=== PATIENT | male | born 1960 | race Caucasian/White ===

== ENCOUNTER 2017-04-11 12:12 | Inpatient (IN) | payer OTHER ==
[~2017-04-11] VITALS: Ht 175.3 cm; Wt 70.0 kg
[2017-04-11] MEDS ORDERED: SOD CHLORIDE 0.9% 1,000 ML IV STA (12:46)
[2017-04-11] MEDS ORDERED: ONDANSETRON 4 MG INJ IV STA (12:46)
--- NOTE | 2017-04-11 13:05 | ERD ---
ER Documentation Chief Complaint Chief Complaint Abdominal pain, nausea, vomiting HPI 57-year-old male with recently diagnosed pancreatic cancer presenting with multiple complaints of diffuse abdominal pain, nausea, vomiting. He states he was diagnosed with pancreatic cancer at [facility] at [facility] a few months ago. He was supposed to follow-up with a GI specialist outpatient for a biliary stent but never did. He has been progressively worsening and is unable to tolerate p.o.'s. He denies any fever or chills. He is constipated with his last bowel movement being a week ago and was normal. He denies any hematemesis or rectal bleeding. ROS All systems reviewed and are negative except as per history of present illness. Medications Home Meds No Active Prescriptions or Reported Meds Allergies Allergies: Coded Allergies: morphine (Verified Allergy, Severe, 04/11/17) PMhx/Soc History of Surgery: No Hx Miscellaneous Medical Probl: Yes (Pancreatic cancer) Hx Alcohol Use: No Hx Substance Use: No Smoking Status: Current every day smoker FmHx Family History: No diabetes Physical Exam Vitals Vital Signs Date Time Temp Pulse Resp B/P Pulse Ox O2 Delivery O2 Flow Rate FiO2 04/11/17 13:37 97.8 04/11/17 13:28 89 18 123/79 98 Room Air 04/11/17 12:15 89 18 113/65 100 04/11/17 12:15 97.8 89 18 113/65 Room Air Physical Exam Const: Appears ill, nontoxic, in some distress secondary to pain Head: Atraumatic Eyes: Positive scleral icterus ENT: Normal External Ears, Nose and Mouth. Dry mucous membranes Neck: Full range of motion..~ No meningismus. No JVD Resp: Clear to auscultation bilaterally Cardio: Regular rate and rhythm, no murmurs Abd: Soft, diffusely tender, no masses, non distended. Hypoactive bowel sounds Skin: Jaundiced Back: No midline or flank tenderness Ext: Bilateral pedal edema Neur: Awake and alert oriented 3, strength grossly intact, no asterixis Psych: Normal Mood and Affect Result Diagram: 04/11/17 1310 04/11/17 1310 Results 24 hrs Laboratory Tests Test 04/11/17 13:10 White Blood Count 11.810^3/ul Red Blood Count 4.6410^6/ul Hemoglobin 14.1g/dl Hematocrit 37.9% Mean Corpuscular Volume 81.7fl Mean Corpuscular Hemoglobin 30.4pg Mean Corpuscular Hemoglobin Concent 37.2g/dl Red Cell Distribution Width 21.3% Platelet Count 82113^3/UL Mean Platelet Volume 10.4fl Neutrophils % 90.1% Lymphocytes % 3.8% Monocytes % 4.7% Eosinophils % 0.3% Basophils % 0.1% Nucleated Red Blood Cells % 0.0/100WBC Neutrophils # 10.710^3/ul Lymphocytes # 0.510^3/ul Monocytes # 0.610^3/ul Eosinophils # 0.010^3/ul Basophils # 0.010^3/ul Nucleated Red Blood Cells # 0.010^3/ul Prothrombin Time 26.0Sec Prothrombin Time Ratio 2.0 INR International Normalized Ratio 2.35 Activated Partial Thromboplast Time 34.2Sec Sodium Level 137mmol/L Potassium Level 3.7mmol/L Chloride Level 94mmol/L Carbon Dioxide Level 21mmol/L Anion Gap 26 Blood Urea Nitrogen 154mg/dl Creatinine 4.80mg/dl Glucose Level 135mg/dl Calcium Level 9.9mg/dl Total Bilirubin 33.3mg/dl Direct Bilirubin 29.40mg/dl Indirect Bilirubin 3.9mg/dl Aspartate Amino Transf (AST/SGOT) 54IU/L Alanine Aminotransferase (ALT/SGPT) 72IU/L Alkaline Phosphatase 649IU/L Troponin I 0.014ng/ml Total Protein 9.3g/dl Albumin 4.3g/dl Globulin 5.00g/dl Albumin/Globulin Ratio 0.86 Lipase 218U/L Current Medications Medications (Trade) Dose Ordered Sig/Elisa Route PRN Reason Start Time Stop Time Status Last Admin Dose Admin Sodium Chloride (NS) 1,000 ml @ 1,000 mls/hr Q1H STAT IV 04/11/17 12:46 04/11/17 13:45 DC 04/11/17 13:21 Ondansetron HCl (Zofran Inj) 4 mg ONCE STAT IV 04/11/17 12:46 04/11/17 12:48 DC 04/11/17 13:20 Hydromorphone HCl 1 mg 1 mg ONCE STAT IV 04/11/17 13:06 04/11/17 13:07 DC 04/11/17 13:20 Lactated Ringer's (Lr) 1,000 ml @ 1,000 mls/hr Q1H ONCE IV 04/11/17 13:50 04/11/17 14:49 DC 04/11/17 14:05 Procedures/MDM EMERGENT LABS AND DIAGNOSTIC STUDIES: Lab Results above were reviewed and interpreted by me. CBC: Mild leukocytosis with left shift CMP: Signs of biliary obstruction noted with elevated alk phos, severely elevated bilirubin, and mildly elevated liver enzymes. There are also signs of acute renal failure Lipase: no evidence of pancreatitis Coags abnormal with elevated INR and PT Troponin within normal limits Lactate within normal limits UA: no evidence of infection 12-lead EKG was interpreted by Primo Davis MD: Normal Sinus Rhythm with ventricular rate of beats per minute Normal axis Normal intervals No acute ST or T wave changes suggestive of acute ischemia or STEMI. Radiology Results as interpreted by Radiology below were reviewed by Christ Davis MD: CT abdomen and pelvis without contrast: IMPRESSION: Large pancreatic tail mass suggesting the presence of pancreatic carcinoma. Ill-defined hypodense lesions within the liver compatible with hepatic metastases. Marked gallbladder distension with moderate severe intrahepatic and central extrahepatic biliary duct dilatation. Abrupt termination at the level of the sully hepatis is observed, which may be a result of pancreatic or biliary carcinoma. Aortocaval lymphadenopathy. Inflammation of the basilar airways with scattered mucus plugging. RPTAT: AAQQ .Alannah Martinez MD, MD Date Time Electronically viewed and signed by .Alannah Martinez MD, MD on 04/11/2017 15:17 Chest x-ray: No acute abnormalities Abdominal ultrasound: IMPRESSION: The liver is mildly enlarged and there are multiple hypoechoic likely metastatic lesions measuring up to 3.8 cm in the right lobe. There is moderate intrahepatic biliary ductal dilatation as well as prominent distension of the gallbladder and dilatation of the common bile duct to 17 mm, likely due to a distal common bile duct obstruction. No cholelithiasis or evidence of acute cholecystitis. Physician Blanca Date Time Electronically viewed and signed by Davon Cosme Physician on 04/11/2017 15:10 Initial Nursing notes reviewed. Previous Medical Records requested via the Electronic Health Record. EMERGENCY DEPARTMENT COURSE / MEDICAL DECISION MAKING: Patient is presenting with signs and symptoms of high-grade biliary obstruction secondary to pancreatic mass. At this time he is afebrile with stable vitals. His only indication for sepsis is elevated white blood cell count with left shift and elevated anion gap. It is unclear if this is secondary to lactic acidosis. Lactate was ordered but was pending at time of admission. However sepsis workup was started and broad-spectrum antibiotics with full fluid bolus was given. I spoke with Dr. Lara from GI and made him aware of the patient. I also spoke with the radiologist, Dr. Cosme, who recommended biliary tube placement. 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 Patient's infectious symptoms have not stabilized and the patient is at risk of rapid decompensation. The patient will be admitted for careful hydration, antibiotic therapy, and infectious source control. Severe Sepsis Assessment: Infectious Source: Intra-abdominal, possible cholangitis End organ damage indicated by: Wildlife [employer] Research Ecologist > 2.0 INR > 1.5 Bili > 2 Severe Sepsis Managment: Blood Cultures X 2 before broad spectrum antibiotics initiated within 3 hours of recognition. 30 ml/kg NS bolus Completed Initial Lactate: Pending Repeat Lactate pending Critical Care: Time: 35 minutes Treatments/Evaluations: Emergent fluid management, while maintaining close respiratory support. Immediate broad spectrum antibiotic therapy. Simultaneous assessment for possible sources in order to direct therapy. Consideration for invasive and chemical support to prevent respiratory or cardiac collapse. Septic Shock Assessment (1 hour post 30 ml/kg fluid bolus): Hypotension (SBP < 90 or 40 mmHg drop, MAP < 65): No Accepting Care Team: Current data and ongoing care discussed. Time: Time of admission Primary Provider: Panel physicians Consulting: [place] Outstanding Data: lactate, cultures Departure Diagnosis: Primary Impression: Pancreatic mass Additional Impressions: Biliary obstruction due to cancer Acute renal failure Acute renal failure type: unspecified Qualified Code: N17.9 - Acute renal failure, unspecified acute renal failure type Uremia Sepsis Sepsis type: sepsis due to unspecified organism Qualified Code: A41.9 - Sepsis, due to unspecified organism Coagulation test abnormality Condition: Serious BIANCA DAVIS MD Apr 11, 2017 13:05
[2017-04-11] MEDS ORDERED: HYDROmorphONE 1 MG/ML SYG IV STA ×2 (13:06→17:56)
--- NOTE | 2017-04-11 13:30 | RADRPT ---
PROCEDURE: XR Chest. CLINICAL INDICATION: Abdominal Pain TECHNIQUE: Single frontal view of the chest was obtained COMPARISON: None FINDINGS: The heart and mediastinum are within normal limits. The lungs are clear. There is no pleural effusion or pneumothorax. A skin fold overlies the right lung apex. The osseous structures are grossly unremarkable. IMPRESSION: 1. No acute cardiopulmonary disease. RPTAT:AAJJ Physician Gracy Date Time Electronically viewed and signed by Physician Gracy on 04/11/2017 13:30 QL/
[2017-04-11 13:37] VITALS: TEMP 97.8
[2017-04-11] MEDS ORDERED: LACTATED RINGER'S 1,000 ML IV ONE (13:50)
[2017-04-11] MEDS ORDERED: ACETAMINOPHEN 325 MG TAB PO PRN (14:00)
[2017-04-11] MEDS ORDERED: ONDANSETRON 4 MG INJ IV PRN (14:00)
[2017-04-11] MEDS ORDERED: SODIUM CHLORIDE 0.9% 1L BAG IV* STA (14:13)
[2017-04-11] MEDS ORDERED: PIPER-TAZO 3.375 GM IV (PMX) 100 ML IVPB ONE (14:30)
--- NOTE | 2017-04-11 15:10 | RADRPT ---
PROCEDURE: US Abdomen Complete. CLINICAL INDICATION: biliary obstruction; hx panc CA TECHNIQUE: Multiple real-time images were acquired of the patient's abdomen and retroperitoneum ut ilizing a high resolution transducer. COMPARISON: None FINDINGS: The liver measures 16.5 cm and demonstrates heterogeneous echotexture with multiple round hypoechoic hypovascular lesions noted measuring up to 3.8 cm in the right lobe which are likely metastases. Th ere is moderate intrahepatic biliary ductal dilatation. The extrahepatic common bile duct measures 1 7 mm. The main portal vein is patent with proper directional flow. The gallbladder is without stones, wall thickening, or pericholecystic fluid. The gallbladder is markedly distended with sludge noted. The pancreas is not well visualized. The spleen measures 12.5 cm. The right kidney measures 11.3 cm. The left kidney measures 11.8 cm. There are no renal calculi or h ydronephrosis bilaterally. The visualized abdominal aorta and IVC are grossly unremarkable. IMPRESSION: The liver is mildly enlarged and there are multiple hypoechoic likely metastatic lesions measuring u p to 3.8 cm in the right lobe. There is moderate intrahepatic biliary ductal dilatation as well as prominent distension of the gall bladder and dilatation of the common bile duct to 17 mm, likely due to a distal common bile duct obs truction. No cholelithiasis or evidence of acute cholecystitis. RPTAT: EE Physician Blanca Date Time Electronically viewed and signed by Physician Balnca on 04/11/2017 15:10 RA/
--- NOTE | 2017-04-11 15:17 | RADRPT ---
PROCEDURE: CT Abdomen and Pelvis without contrast. CLINICAL INDICATION: Pain. Pancreatic cancer. TECHNIQUE: Multiple contiguous axial CT images of the abdomen and pelvis were obtained without the administration of intravenous contrast. Coronal and sagittal reconstructions were also performed. C TDIvol (mGy): 6.93; Total Exam DLP (mGy-cm): 404.23. One or more of the following dose reduction techniques were utilized: - Automated exposure control. - Adjustment of the mA and/or kV according to patient size. - Use of iterative reconstruction technique. COMPARISON: Abdominal ultrasound 04/11/2017. FINDINGS: Limited imaging of the lower thorax demonstrates bronchial wall thickening with scattered mucus plug ging within the lung bases. There is a 3.8 cm ill-defined hypodensity within the inferior aspect of the right hepatic lobe. Ther e is a similar 3.7 cm ill-defined hypodensity within the medial segment of the left hepatic lobe. Mo derate severe intrahepatic and central extrahepatic biliary duct dilatation is observed. The gallbla dder is markedly distended. There is focal enlargement and heterogeneity of the pancreatic tail latia uring approximately 4.3 cm in greatest diameter. The adrenal glands are unremarkable. The spleen lucia sures 13.0 cm in a craniocaudal dimension which is mildly enlarged. The kidneys are symmetric in size. There are no nephroureteral stones. There is no hydronephrosis o r abnormal perinephric inflammation. The abdominal aorta is normal in caliber. Atherosclerotic calcification is present. There is an en larged aortocaval lymph node which measures 16 mm in short axis (3-73). The stomach and small intestines are unremarkable. A moderate large volume of formed stool seen thro ughout the colon. The appendix is not visualized. There are no focal inflammatory changes of the me sentery. There is no mesenteric lymphadenopathy. There is no ascites. The bladder, prostate and seminal vesicles are unremarkable. There is no free pelvic fluid. There i s no pelvic sidewall or inguinal lymphadenopathy. Mild degenerative changes of the lower lumbar spine are observed. Body wall soft tissues are unremar kable. IMPRESSION: Large pancreatic tail mass suggesting the presence of pancreatic carcinoma. Ill-defined hypodense lesions within the liver compatible with hepatic metastases. Marked gallbladder distension with moderate severe intrahepatic and central extrahepatic biliary ashly t dilatation. Abrupt termination at the level of the sully hepatis is observed, which may be a resul t of pancreatic or biliary carcinoma. Aortocaval lymphadenopathy. Inflammation of the basilar airways with scattered mucus plugging. RPTAT: AAQQ .Alannah Martinez MD, Date Time Electronically viewed and signed by .Alannah Martinez MD, on 04/11/2017 15:17 .T/
[2017-04-11 16:00] VITALS: BP 119/63; PULSE 86; RESP 16; Ht 175.3 cm; Wt 70.0 kg
--- NOTE | 2017-04-11 17:07 | CONS ---
Date/Time of Note Date/Time of Note DATE: 04/11/17 TIME: 16:41 Assessment/Plan Assessment/Plan Chief Complaint/Hosp Course Summary Assessment and Plan: Assessment: Pancreatic Cancer Possible metastasis to liver Hyperbilirubinemia-secondary to pancreatic cancer Plan: Continue to monitor labs Possible plan for ERCP Sunday- will reevaluate tomorrow Endoscopy - risks/benefits/alternatives/indications of procedure and sedation/ anesthesia discussed with patient who states understanding and gives informed consent to proceed. Questions were answered. Consider palliative care Patient seen in collaboration with Dr. Lara Chief Complaint/Reason for Visit: Hyperbilirubinemia History of Present Illness: This is a 57-year-old male recently diagnosed with pancreatic cancer, Was suppose to follow up with oncology but never did. Pt admitted to hospital for worsening abd pain, located RLQ, pain is described as being sharp, only relieved with pain medication. Workup patient was noted to have a bilirubin of 33, aminotransferase are minimally elevated. A CT scan was obtained showing large pancreatic tail mass suggesting the presence of pancreatic carcinoma.Ill- defined hypodense lesions within the liver compatible with hepatic metastases.Marked gallbladder distension with moderate severe intrahepatic and central extrahepatic biliary duct dilatation. Abrupt termination at the level of the sully hepatis is observed, which may be a result of pancreatic or biliary carcinoma. Aortocaval lymphadenopathy.Inflammation of the basilar airways with scattered mucus plugging. The time of examination patient is jaundiced and complained of right lower quadrant pain, nausea, poor appetite, weight loss, occasional constipation. He denies diarrhea pyrosis rectal bleeding hematemesis. Plan for ERCP Sunday, overall patient with poor prognosis. Past Medical History: Pancreatic cancer Allergies: Morphine Family History: No family history of colon cancer Social History: Former smoker-3 months ago PHYSICAL EXAMINATION: GENERAL: chronically ill, frail, jaundice, alert & oriented x 3, SKIN: No lesions, no stigmata chronic liver disease, no evidence of bleeding diathesis LYMPHATIC: No palpable lymphadenopathy. HEAD: Normocephalic, atraumatic, no tenderness. EYES: Pupils equal reactive to light and accommodation, full extraocular movements, sclera clear, non-icteric, no discharge. EARS/NOSE AND THROAT: Ears normal, nose normal, oropharynx normal, oral membranes well hydrated without lesions. NECK: Supple, no masses, thyroid normal, JVP within normal limits, carotids normal without bruits. CHEST: Inspection within normal limits. CARDIOVASCULAR: Heart: Regular rate and rhythm, no murmurs, gallops or rubs. Peripheral pulses present within normal limits, no cyanosis, clubbing or edemas. No pulsatile abdominal mass RESPIRATORY: Lungs clear to auscultation GASTROINTESTINAL AND LIVER: Abdomen: Soft, non tenderness, distended, no hernias , no masses, no guarding, no rebound tenderness, normoactive bowel sounds. Rectal: Deferred. GENITOURINARY: Male genitalia within normal limits. EXTREMITIES: No cyanosis, clubbing. Positive for BLE edema. Problems: Consultation Date/Type/Reason Admit Date/Time Apr 11, 2017 at 13:53 Date of Consultation: Apr 11, 2017 Type of Consultation: GI Reason for Consultation Hyperbilirubinemia Social History Smoking Status: Former smoker Exam/Review of Systems Vital Signs Vitals Vital Signs Date Time Temp Pulse Resp B/P Pulse Ox O2 Delivery O2 Flow Rate FiO2 04/11/17 13:37 97.8 04/11/17 13:28 89 18 123/79 98 Room Air Results Result Diagram: 04/11/17 1310 04/11/17 1310 Results 24 hrs Laboratory Tests Test 04/11/17 13:10 White Blood Count 11.8 H Red Blood Count 4.64 L Hemoglobin 14.1 Hematocrit 37.9 L Mean Corpuscular Volume 81.7 L Mean Corpuscular Hemoglobin 30.4 Mean Corpuscular Hemoglobin Concent 37.2 H Red Cell Distribution Width 21.3 H Platelet Count 217 Mean Platelet Volume 10.4 Neutrophils % 90.1 H Lymphocytes % 3.8 L Monocytes % 4.7 Eosinophils % 0.3 Basophils % 0.1 Nucleated Red Blood Cells % 0.0 Neutrophils # 10.7 H Lymphocytes # 0.5 L Monocytes # 0.6 Eosinophils # 0.0 Basophils # 0.0 Nucleated Red Blood Cells # 0.0 Prothrombin Time 26.0 H Prothrombin Time Ratio 2.0 INR International Normalized Ratio 2.35 Activated Partial Thromboplast Time 34.2 Sodium Level 137 Potassium Level 3.7 Chloride Level 94 L Carbon Dioxide Level 21 Anion Gap 26 H Blood Urea Nitrogen 154 H Creatinine 4.80 H Glucose Level 135 Calcium Level 9.9 Total Bilirubin 33.3 H Direct Bilirubin 29.40 *H Indirect Bilirubin 3.9 H Aspartate Amino Transf (AST/SGOT) 54 H Alanine Aminotransferase (ALT/SGPT) 72 H Alkaline Phosphatase 649 H Troponin I 0.014 Total Protein 9.3 H Albumin 4.3 Globulin 5.00 H Albumin/Globulin Ratio 0.86 Lipase 218 ARIK FLOREZ Apr 11, 2017 16:51
--- NOTE | 2017-04-11 17:39 | HP ---
Date/Time of Note Date/Time of Note DATE: 04/11/17 TIME: 17:34 Assessment/Plan VTE Prophylaxis VTE Prophylaxis Intervention: heparin Assessment/Plan Chief Complaint/Hosp Course 57 yo male with stage IV pancreatic cancer presenting with obstructive jaundice - Pain control w oxycodone and IV dialudid PRN - Palliative consulted - Consideration of ERCP which would be a palliative procedure - Hospice consult DNR/DNI Problems: HPI/ROS Admit Date/Time Admit Date/Time Apr 11, 2017 at 13:53 Hx of Present Illness 57 yo male presenting wtih abdominal pain Patient was diagnosed with stage IV pancreatic cancer a few months ago at [facility] after presenting with jaundice. Was offered biliary stent but declined. No cancer directed care ever done, as patient decided given inability to cure advanced cancer there wasn't point in doing so. His pain in abdomen, mostly in RUQ has worsened and become intolerable. Came to hosptial today for pain control. Imaging and labs shows marked obstructive jaundice in setting of metastatic pancreatic cancer. Patient has been offered pallitative ERCP/stent but he is undecided on if he wants to Patient is here from [place], living in [facility] Previously sounds like offered home hospice via [facility] but unable given transient housing situation Discussed options, he is clearly DNR/DNI. Very open to hospice PMH/Family/Social Social History Smoking Status: Current every day smoker Exam/Review of Systems Vital Signs Vitals Vital Signs Date Time Temp Pulse Resp B/P Pulse Ox O2 Delivery O2 Flow Rate FiO2 04/11/17 13:37 97.8 04/11/17 13:28 89 18 123/79 98 Room Air Exam Exam Jaundiced, cachectic Pleasant, orietnex x3 RRR Clear lungs Abdomen soft, masses felt, no rebound or guarding No edema Constitutional: alert, oriented, well developed Psych: nl mood/affect, no complaints Head: atraumatic, normocephalic Eyes: EOMI, PERRL, nl conjunctiva, nl lids, nl sclera ENMT: nl external ears & nose, nl lips & teeth, nl nasal mucosa & septum Neck: non-tender, supple Respiratory: clear to auscultation, normal air movement Cardiovascular: nl pulses, regular rate and rhythm Gastrointestinal: nl liver, spleen, non-tender, soft Musculoskeletal: nl extremities to inspection Extremities: normal pulses Neurological: CASE BRIEFER II-XII intact, nl mental status, nl speech, nl strength Skin: nl turgor, No rash or lesions Lymph: nl lymph nodes Labs Result Diagram: 04/11/17 1310 04/11/17 1310 KEILY ROMANO MD Apr 11, 2017 17:39
--- NOTE | 2017-04-11 17:39 | HP ---
Date/Time of Note Date/Time of Note DATE: 04/11/17 TIME: 17:34 Assessment/Plan VTE Prophylaxis VTE Prophylaxis Intervention: heparin Assessment/Plan Chief Complaint/Hosp Course 57 yo male with stage IV pancreatic cancer presenting with obstructive jaundice - Pain control w oxycodone and IV dialudid PRN - Palliative consulted - Consideration of ERCP which would be a palliative procedure - Hospice consult DNR/DNI Problems: HPI/ROS Admit Date/Time Admit Date/Time Apr 11, 2017 at 13:53 Hx of Present Illness 57 yo male presenting wtih abdominal pain Patient was diagnosed with stage IV pancreatic cancer a few months ago at [facility] after presenting with jaundice. Was offered biliary stent but declined. No cancer directed care ever done, as patient decided given inability to cure advanced cancer there wasn't point in doing so. His pain in abdomen, mostly in RUQ has worsened and become intolerable. Came to hosptial today for pain control. Imaging and labs shows marked obstructive jaundice in setting of metastatic pancreatic cancer. Patient has been offered pallitative ERCP/stent but he is undecided on if he wants to Patient is here from [place], living in [facility]. Previously sounds like offered home hospice via [facility] but unable given transient housing situation Discussed options, he is clearly DNR/DNI. Very open to hospice PMH/Family/Social Social History Smoking Status: Current every day smoker Exam/Review of Systems Vital Signs Vitals Vital Signs Date Time Temp Pulse Resp B/P Pulse Ox O2 Delivery O2 Flow Rate FiO2 04/11/17 13:37 97.8 04/11/17 13:28 89 18 123/79 98 Room Air Exam Exam Jaundiced, cachectic Pleasant, orietnex x3 RRR Clear lungs Abdomen soft, masses felt, no rebound or guarding No edema Constitutional: alert, oriented, well developed Psych: nl mood/affect, no complaints Head: atraumatic, normocephalic Eyes: EOMI, PERRL, nl conjunctiva, nl lids, nl sclera ENMT: nl external ears & nose, nl lips & teeth, nl nasal mucosa & septum Neck: non-tender, supple Respiratory: clear to auscultation, normal air movement Cardiovascular: nl pulses, regular rate and rhythm Gastrointestinal: nl liver, spleen, non-tender, soft Musculoskeletal: nl extremities to inspection Extremities: normal pulses Neurological: SUGAR PLANTATION MANAGER II-XII intact, nl mental status, nl speech, nl strength Skin: nl turgor, No rash or lesions Lymph: nl lymph nodes Labs Result Diagram: 04/11/17 1310 04/11/17 1310 KEILY ROMANO MD Apr 11, 2017 17:39
--- NOTE | 2017-04-11 17:39 | HP ---
Date/Time of Note Date/Time of Note DATE: 04/11/17 TIME: 17:34 Assessment/Plan VTE Prophylaxis VTE Prophylaxis Intervention: heparin Assessment/Plan Chief Complaint/Hosp Course 57 yo male with stage IV pancreatic cancer presenting with obstructive jaundice - Pain control w oxycodone and IV dialudid PRN - Palliative consulted - Consideration of ERCP which would be a palliative procedure - Hospice consult DNR/DNI Problems: HPI/ROS Admit Date/Time Admit Date/Time Apr 11, 2017 at 13:53 Hx of Present Illness 57 yo male presenting wtih abdominal pain Patient was diagnosed with stage IV pancreatic cancer a few months ago at [facility] after presenting with jaundice. Was offered biliary stent but declined. No cancer directed care ever done, as patient decided given inability to cure advanced cancer there wasn't point in doing so. His pain in abdomen, mostly in RUQ has worsened and become intolerable. Came to hosptial today for pain control. Imaging and labs shows marked obstructive jaundice in setting of metastatic pancreatic cancer. Patient has been offered pallitative ERCP/stent but he is undecided on if he wants to Patient is here from [place], living in [facility]. Previously sounds like offered home hospice via [facility] but unable given transient housing situation Discussed options, he is clearly DNR/DNI. Very open to hospice PMH/Family/Social Social History Smoking Status: Current every day smoker Exam/Review of Systems Vital Signs Vitals Vital Signs Date Time Temp Pulse Resp B/P Pulse Ox O2 Delivery O2 Flow Rate FiO2 04/11/17 13:37 97.8 04/11/17 13:28 89 18 123/79 98 Room Air Exam Exam Jaundiced, cachectic Pleasant, orietnex x3 RRR Clear lungs Abdomen soft, masses felt, no rebound or guarding No edema Constitutional: alert, oriented, well developed Psych: nl mood/affect, no complaints Head: atraumatic, normocephalic Eyes: EOMI, PERRL, nl conjunctiva, nl lids, nl sclera ENMT: nl external ears & nose, nl lips & teeth, nl nasal mucosa & septum Neck: non-tender, supple Respiratory: clear to auscultation, normal air movement Cardiovascular: nl pulses, regular rate and rhythm Gastrointestinal: nl liver, spleen, non-tender, soft Musculoskeletal: nl extremities to inspection Extremities: normal pulses Neurological: TIRE AND LUBE TECHNICIAN II-XII intact, nl mental status, nl speech, nl strength Skin: nl turgor, No rash or lesions Lymph: nl lymph nodes Labs Result Diagram: 04/11/17 1310 04/11/17 1310 KEILY ROMANO MD Apr 11, 2017 17:39
[2017-04-11] MEDS ORDERED: NACL 0.9% 3 ML SYG IV SCH (18:00)
[2017-04-11] MEDS ORDERED: oxyCODONE 15 MG TAB PO PRN (18:00)
[2017-04-11 19:57] VITALS: BP 110/61; RESP 20
[2017-04-11] MEDS: HYDROmorphONE 0.5 MG/0.5 ML SYG IV PRN (20:19)
[2017-04-12 03:01] VITALS: BP 114/64; RESP 18
[2017-04-12] MEDS: HYDROmorphONE 0.5 MG/0.5 ML SYG IV PRN (04:48)
[2017-04-12 07:46] VITALS: BP 125/76; RESP 18
[2017-04-12] MEDS ORDERED: HYDROmorphONE 2 MG/ML SYG IV STA (08:45)
--- NOTE | 2017-04-12 08:51 | CONS ---
Date/Time of Note Date/Time of Note DATE: 04/12/17 TIME: 08:49 Assessment/Plan Assessment/Plan Additional Assessment/Plan Pancreatic cancer Obstructive jaundice Abdominal pain Depression Mr. Quan has made it very clear that he is not interested in aggressive care. He was given options at [facility] but refused chemotherapy or any other diagnostic or aggressive intervention. He is clearly distraught and depressed, and he is homeless. He has no support system is not he has no children and my impressions are no close friends to help with assistance. Additionally he complains of abdominal pain although he states has not increased in intensity he is very uncomfortable. Denies pain in bilateral lower extremities but he has radiating pain into his back 7/10 at rest, 3/10 with medications including Dilaudid IV. He states that he is unable to take p.o. any longer. He was only on OxyContin as an outpatient, he is non-smoker nondrinker he has no significant past medical history of substance abuse he is not negotiating with me for higher doses of pain control medications nor particular opioids. Currently he states he is nauseous but denies pruritus mental confusion pain does interfere with his mood sleeping pattern. Patient is not asking for pain control medications from situational stressors only pain control. There is no past medical history of DUIs. His pain is described as to severe. 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 Social work service consultation consider early plans for probable snf placement. Consultation Date/Type/Reason Admit Date/Time Apr 11, 2017 at 13:53 Type of Consultation: Pain palliative Hx of Present Illness 57-year-old gentleman who was diagnosed with pancreatic cancer 3 months ago at [facility]. He presented there with abdominal discomfort increasing in severity he refuses any aggressive intervention and was discharged home with chest pain control medications. He called 911 and was brought to emergency room and [facility] for increasing abdominal discomfort, nausea loss of appetite. He is not interested in any further aggressive intervention and the only intervention he is considering is stent placement, however he wants to think about it until Sunday 3 days from now. Psychological: nl mood/affect, no complaints Social History Smoking Status: Current every day smoker Exam/Review of Systems Vital Signs Vitals Vital Signs Date Time Temp Pulse Resp B/P Pulse Ox O2 Delivery O2 Flow Rate FiO2 04/12/17 07:46 98.0 87 18 125/76 99 04/11/17 16:00 Room Air Intake and Output 04/11/17 04/11/17 04/12/17 15:00 23:00 07:00 Intake Total 620 ml Output Total 400 ml Balance 220 ml Exam Constitutional: distress, frail Psych: depression Respiratory: No clear to auscultation, No congested cough, No crackles/rales, No diminished breath sounds, No intercostal retraction, No labored breathing, No normal air movement, No other, No respirations, No tactile fremitus, No wheezing Cardiovascular: No S3, No S4, No bruits, No diastolic murmur, No edema, No gallop, No irregular rhythm, No jugular venous distention (JVD), No murmurs/ extra sounds, No nl pulses, No other, No regular rate and rhythm, No rub, No systolic murmur Neurological: CONCRETE BATCHING PLANT OPERATOR II-XII intact, nl mental status, nl speech, nl strength Results Result Diagram: 04/12/1744004/12/17 044 Results 24 hrs Laboratory Tests Test 04/11/17 13:10 04/11/17 17:30 04/11/17 19:21 04/11/17 22:14 White Blood Count 11.8 H Red Blood Count 4.64 L Hemoglobin 14.1 Hematocrit 37.9 L Mean Corpuscular Volume 81.7 L Mean Corpuscular Hemoglobin 30.4 Mean Corpuscular Hemoglobin Concent 37.2 H Red Cell Distribution Width 21.3 H Platelet Count 217 Mean Platelet Volume 10.4 Neutrophils % 90.1 H Lymphocytes % 3.8 L Monocytes % 4.7 Eosinophils % 0.3 Basophils % 0.1 Nucleated Red Blood Cells % 0.0 Neutrophils # 10.7 H Lymphocytes # 0.5 L Monocytes # 0.6 Eosinophils # 0.0 Basophils # 0.0 Nucleated Red Blood Cells # 0.0 Prothrombin Time 26.0 H Prothrombin Time Ratio 2.0 INR International Normalized Ratio 2.35 Activated Partial Thromboplast Time 34.2 Sodium Level 137 Potassium Level 3.7 Chloride Level 94 L Carbon Dioxide Level 21 Anion Gap 26 H Blood Urea Nitrogen 154 H Creatinine 4.80 H Glucose Level 135 Calcium Level 9.9 Total Bilirubin 33.3 H Direct Bilirubin 29.40 *H Indirect Bilirubin 3.9 H Aspartate Amino Transf (AST/SGOT) 54 H Alanine Aminotransferase (ALT/SGPT) 72 H Alkaline Phosphatase 649 H Troponin I 0.014 Total Protein 9.3 H Albumin 4.3 Globulin 5.00 H Albumin/Globulin Ratio 0.86 Lipase 218 Lactic Acid Level 1.5 1.1 1.0 Test 04/11/17 23:50 04/12/17 04:41 Urine Color MEG Urine Clarity CLEAR Urine pH 5.0 Urine Specific [place] 1.014 Urine Ketones NEGATIVE Urine Nitrite NEGATIVE Urine Bilirubin 2+ H Urine Urobilinogen 2+ H Urine Leukocyte Esterase NEGATIVE Urine Microscopic RBC 6 H Urine Microscopic WBC 4 Urine Hemoglobin 1+ H Urine Random Sodium < 13 L Urine Glucose NEGATIVE Urine Total Protein 1+ H White Blood Count 9.9 Red Blood Count 3.97 L Hemoglobin 12.3 L Hematocrit 32.8 L Mean Corpuscular Volume 82.6 Mean Corpuscular Hemoglobin 31.0 Mean Corpuscular Hemoglobin Concent 37.5 H Red Cell Distribution Width 21.0 H Platelet Count 161 # Mean Platelet Volume Neutrophils % 87.7 H Lymphocytes % 4.6 L Monocytes % 6.1 Eosinophils % 0.7 Basophils % 0.1 Nucleated Red Blood Cells % 0.0 Neutrophils # 8.7 H Lymphocytes # 0.5 L Monocytes # 0.6 Eosinophils # 0.1 Basophils # 0.0 Nucleated Red Blood Cells # 0.0 Sodium Level 138 Potassium Level 4.1 Chloride Level 96 L Carbon Dioxide Level 21 Anion Gap 25 H Blood Urea Nitrogen 149 H Creatinine 4.34 H Glucose Level 108 Calcium Level 8.9 Total Bilirubin 30.0 H Direct Bilirubin 25.70 *H Indirect Bilirubin 4.3 H Aspartate Amino Transf (AST/SGOT) 56 H Alanine Aminotransferase (ALT/SGPT) 60 Alkaline Phosphatase 525 H Total Protein 8.0 # Albumin 4.0 Globulin 4.00 H Albumin/Globulin Ratio 1.00 Medications Medications Current Medications Hydromorphone HCl (Dilaudid) 0.5 mg Q4H PRN IV SEVERE PAIN LEVEL 7-10 Last administered on 04/12/17t 04:48; Admin Dose 0.5 MG; Start 04/11/17 at 18:00 Oxycodone HCl (Roxicodone) 15 mg Q4H PRN PO PAIN; Start 04/11/17 at 18:00 Enoxaparin Sodium (Lovenox) 30 mg DAILY SC ; Start 04/12/17 at 09:00 ZOHRA ANN Apr 12, 2017 08:51
[2017-04-12] MEDS ORDERED: ENOXAPARIN 40 MG/0.4 ML SYG SC SCH (09:00)
[2017-04-12] MEDS: ENOXAPARIN 30 MG/0.3 ML SYG SC SCH (09:18)
[2017-04-12] MEDS: HYDROmorphONE 0.2 MG/ML PCA IV SCH (10:43)
--- NOTE | 2017-04-12 12:37 | PN ---
Date/Time of Note Date/Time of Note DATE: 04/12/17 TIME: 12:32 Assessment/Plan VTE Prophylaxis VTE Prophylaxis Intervention: SCD's Lines/Catheters [facility] Urinary Cath still in place: No Assessment/Plan Chief Complaint/Hosp Course Summary Assessment and Plan: Assessment: Pancreatic Cancer Possible metastasis to liver Hyperbilirubinemia-secondary to pancreatic cancer Plan: Continue plan of care Patient currently does not want ERCP only c/o minimal pruritus-but does not affect current well-being Will continue to monitor patient Patient seen in collaboration with Dr. 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 C/o minimal pruritus but not enough to affect well-being. Will continue to monitor patient. PHYSICAL EXAMINATION: GENERAL: chronically ill, frail, jaundice, alert & oriented x 3, SKIN: No lesions, no stigmata chronic liver disease, no evidence of bleeding diathesis LYMPHATIC: No palpable lymphadenopathy. HEAD: Normocephalic, atraumatic, no tenderness. EYES: Pupils equal reactive to light and accommodation, full extraocular movements, sclera clear, non-icteric, no discharge. EARS/NOSE AND THROAT: Ears normal, nose normal, oropharynx normal, oral membranes well hydrated without lesions. NECK: Supple, no masses, thyroid normal, JVP within normal limits, carotids normal without bruits. CHEST: Inspection within normal limits. CARDIOVASCULAR: Heart: Regular rate and rhythm, no murmurs, gallops or rubs. Peripheral pulses present within normal limits, no cyanosis, clubbing or edemas. No pulsatile abdominal mass RESPIRATORY: Lungs clear to auscultation GASTROINTESTINAL AND LIVER: Abdomen: Soft, non tenderness, distended, no hernias , no masses, no guarding, no rebound tenderness, normoactive bowel sounds. Rectal: Deferred. GENITOURINARY: Male genitalia within normal limits. EXTREMITIES: No cyanosis, clubbing. Positive for BLE edema. Problems: Exam/Review of Systems Vital Signs Vitals Vital Signs Date Time Temp Pulse Resp B/P Pulse Ox O2 Delivery O2 Flow Rate FiO2 04/12/17 07:46 98.0 87 18 125/76 99 04/11/17 16:00 Room Air Intake and Output 04/11/17 04/11/17 04/12/17 15:00 23:00 07:00 Intake Total 620 ml Output Total 400 ml Balance 220 ml Results Result Diagram: 04/12/17 0441 04/12/17 0441 Results 24 hrs Laboratory Tests Test 04/11/17 13:10 04/11/17 17:30 04/11/17 19:21 04/11/17 22:14 White Blood Count 11.8 H Red Blood Count 4.64 L Hemoglobin 14.1 Hematocrit 37.9 L Mean Corpuscular Volume 81.7 L Mean Corpuscular Hemoglobin 30.4 Mean Corpuscular Hemoglobin Concent 37.2 H Red Cell Distribution Width 21.3 H Platelet Count 217 Mean Platelet Volume 10.4 Neutrophils % 90.1 H Lymphocytes % 3.8 L Monocytes % 4.7 Eosinophils % 0.3 Basophils % 0.1 Nucleated Red Blood Cells % 0.0 Neutrophils # 10.7 H Lymphocytes # 0.5 L Monocytes # 0.6 Eosinophils # 0.0 Basophils # 0.0 Nucleated Red Blood Cells # 0.0 Prothrombin Time 26.0 H Prothrombin Time Ratio 2.0 INR International Normalized Ratio 2.35 Activated Partial Thromboplast Time 34.2 Sodium Level 137 Potassium Level 3.7 Chloride Level 94 L Carbon Dioxide Level 21 Anion Gap 26 H Blood Urea Nitrogen 154 H Creatinine 4.80 H Glucose Level 135 Calcium Level 9.9 Total Bilirubin 33.3 H Direct Bilirubin 29.40 *H Indirect Bilirubin 3.9 H Aspartate Amino Transf (AST/SGOT) 54 H Alanine Aminotransferase (ALT/SGPT) 72 H Alkaline Phosphatase 649 H Troponin I 0.014 Total Protein 9.3 H Albumin 4.3 Globulin 5.00 H Albumin/Globulin Ratio 0.86 Lipase 218 Lactic Acid Level 1.5 1.1 1.0 Test 04/11/17 23:50 04/12/17 04:41 Urine Color MEG Urine Clarity CLEAR Urine pH 5.0 Urine Specific [place] 1.014 Urine Ketones NEGATIVE Urine Nitrite NEGATIVE Urine Bilirubin 2+ H Urine Urobilinogen 2+ H Urine Leukocyte Esterase NEGATIVE Urine Microscopic RBC 6 H Urine Microscopic WBC 4 Urine Hemoglobin 1+ H Urine Random Sodium < 13 L Urine Glucose NEGATIVE Urine Total Protein 1+ H White Blood Count 9.9 Red Blood Count 3.97 L Hemoglobin 12.3 L Hematocrit 32.8 L Mean Corpuscular Volume 82.6 Mean Corpuscular Hemoglobin 31.0 Mean Corpuscular Hemoglobin Concent 37.5 H Red Cell Distribution Width 21.0 H Platelet Count 161 # Mean Platelet Volume Neutrophils % 87.7 H Lymphocytes % 4.6 L Monocytes % 6.1 Eosinophils % 0.7 Basophils % 0.1 Nucleated Red Blood Cells % 0.0 Neutrophils # 8.7 H Lymphocytes # 0.5 L Monocytes # 0.6 Eosinophils # 0.1 Basophils # 0.0 Nucleated Red Blood Cells # 0.0 Sodium Level 138 Potassium Level 4.1 Chloride Level 96 L Carbon Dioxide Level 21 Anion Gap 25 H Blood Urea Nitrogen 149 H Creatinine 4.34 H Glucose Level 108 Calcium Level 8.9 Total Bilirubin 30.0 H Direct Bilirubin 25.70 *H Indirect Bilirubin 4.3 H Aspartate Amino Transf (AST/SGOT) 56 H Alanine Aminotransferase (ALT/SGPT) 60 Alkaline Phosphatase 525 H Total Protein 8.0 # Albumin 4.0 Globulin 4.00 H Albumin/Globulin Ratio 1.00 Medications Medications Current Medications Enoxaparin Sodium (Lovenox) 30 mg DAILY SC Last administered on 04/12/17 09:18 ; Admin Dose 30 MG; Start 04/12/17 at 09:00 Hydromorphone HCl (Dilaudid ADVERTISING LAYOUT WORKER) 0.3 MG/HR CONTINUOUS R... Q4PCA IV Last administered on 04/12/17 10:43; Admin Dose 6 MG; Start 04/12/17 at 09:00 ARIK FLOREZ Apr 12, 2017 12:37
--- NOTE | 2017-04-12 13:48 | PN ---
Date/Time of Note Date/Time of Note DATE: 04/12/17 TIME: 13:47 Assessment/Plan VTE Prophylaxis VTE Prophylaxis Intervention: heparin Lines/Catheters IV C[facility]ter Type (from [facility]): Saline Lock Urinary Cath still in place: No Assessment/Plan Chief Complaint/Hosp Course 57 yo male with stage IV pancreatic cancer presenting with obstructive jaundice - Pain control w SALESPERSON STEREO EQUIPMENT per Dr Brown - Consideration of ERCP which would be a palliative procedure, leaning against it - Hospice consulted, hopefully can be placed in SNF DNR/DNI Problems: Subjective 24 Hr Interval Summary Free Text/Dictation Seems to be leaning against ERCP Started on SALESPERSON STEREO EQUIPMENT Exam/Review of Systems Vital Signs Vitals Vital Signs Date Time Temp Pulse Resp B/P Pulse Ox O2 Delivery O2 Flow Rate FiO2 04/12/17 07:46 98.0 87 18 125/76 99 04/11/17 16:00 Room Air Intake and Output 04/11/17 04/11/17 04/12/17 15:00 23:00 07:00 Intake Total 620 ml Output Total 400 ml Balance 220 ml Results Result Diagram: 04/12/17 0441 04/12/17 0441 Results 24 hrs Laboratory Tests Test 04/11/17 17:30 04/11/17 19:21 04/11/17 22:14 04/11/17 23:50 Lactic Acid Level 1.5 1.1 1.0 Urine Color MEG Urine Clarity CLEAR Urine pH 5.0 Urine Specific [place] 1.014 Urine Ketones NEGATIVE Urine Nitrite NEGATIVE Urine Bilirubin 2+ H Urine Urobilinogen 2+ H Urine Leukocyte Esterase NEGATIVE Urine Microscopic RBC 6 H Urine Microscopic WBC 4 Urine Hemoglobin 1+ H Urine Random Sodium < 13 L Urine Glucose NEGATIVE Urine Total Protein 1+ H Test 04/12/17 04:41 White Blood Count 9.9 Red Blood Count 3.97 L Hemoglobin 12.3 L Hematocrit 32.8 L Mean Corpuscular Volume 82.6 Mean Corpuscular Hemoglobin 31.0 Mean Corpuscular Hemoglobin Concent 37.5 H Red Cell Distribution Width 21.0 H Platelet Count 161 # Mean Platelet Volume Neutrophils % 87.7 H Lymphocytes % 4.6 L Monocytes % 6.1 Eosinophils % 0.7 Basophils % 0.1 Nucleated Red Blood Cells % 0.0 Neutrophils # 8.7 H Lymphocytes # 0.5 L Monocytes # 0.6 Eosinophils # 0.1 Basophils # 0.0 Nucleated Red Blood Cells # 0.0 Sodium Level 138 Potassium Level 4.1 Chloride Level 96 L Carbon Dioxide Level 21 Anion Gap 25 H Blood Urea Nitrogen 149 H Creatinine 4.34 H Glucose Level 108 Calcium Level 8.9 Total Bilirubin 30.0 H Direct Bilirubin 25.70 *H Indirect Bilirubin 4.3 H Aspartate Amino Transf (AST/SGOT) 56 H Alanine Aminotransferase (ALT/SGPT) 60 Alkaline Phosphatase 525 H Total Protein 8.0 # Albumin 4.0 Globulin 4.00 H Albumin/Globulin Ratio 1.00 Medications Medications Current Medications Enoxaparin Sodium (Lovenox) 30 mg DAILY SC Last administered on 04/12/17 09:18 ; Admin Dose 30 MG; Start 04/12/17 at 09:00 Hydromorphone HCl (Dilaudid SALESPERSON STEREO EQUIPMENT) 0.3 MG/HR CONTINUOUS R... Q4PCA IV Last administered on 04/12/17 10:43; Admin Dose 6 MG; Start 04/12/17 at 09:00 KEILY ROMANO MD Apr 12, 2017 13:48
--- NOTE | 2017-04-12 13:48 | PN ---
Date/Time of Note Date/Time of Note DATE: 04/12/17 TIME: 13:47 Assessment/Plan VTE Prophylaxis VTE Prophylaxis Intervention: heparin Lines/Catheters IV Catheter Type (from [facility]): Saline Lock Urinary Cath still in place: No Assessment/Plan Chief Complaint/Hosp Course 57 yo male with stage IV pancreatic cancer presenting with obstructive jaundice - Pain control w SUPERVISOR SULFURIC ACID PLANT per Dr Brown - Consideration of ERCP which would be a palliative procedure, leaning against it - Hospice consulted, hopefully can be placed in SNF DNR/DNI Problems: Subjective 24 Hr Interval Summary Free Text/Dictation Seems to be leaning against ERCP Started on SUPERVISOR SULFURIC ACID PLANT Exam/Review of Systems Vital Signs Vitals Vital Signs Date Time Temp Pulse Resp B/P Pulse Ox O2 Delivery O2 Flow Rate FiO2 04/12/17 07:46 98.0 87 18 125/76 99 04/11/17 16:00 Room Air Intake and Output 04/11/17 04/11/17 04/12/17 15:00 23:00 07:00 Intake Total 620 ml Output Total 400 ml Balance 220 ml Results Result Diagram: 04/12/17 0441 04/12/17 0441 Results 24 hrs Laboratory Tests Test 04/11/17 17:30 04/11/17 19:21 04/11/17 22:14 04/11/17 23:50 Lactic Acid Level 1.5 1.1 1.0 Urine Color MEG Urine Clarity CLEAR Urine pH 5.0 Urine Specific [place] 1.014 Urine Ketones NEGATIVE Urine Nitrite NEGATIVE Urine Bilirubin 2+ H Urine Urobilinogen 2+ H Urine Leukocyte Esterase NEGATIVE Urine Microscopic RBC 6 H Urine Microscopic WBC 4 Urine Hemoglobin 1+ H Urine Random Sodium < 13 L Urine Glucose NEGATIVE Urine Total Protein 1+ H Test 04/12/17 04:41 White Blood Count 9.9 Red Blood Count 3.97 L Hemoglobin 12.3 L Hematocrit 32.8 L Mean Corpuscular Volume 82.6 Mean Corpuscular Hemoglobin 31.0 Mean Corpuscular Hemoglobin Concent 37.5 H Red Cell Distribution Width 21.0 H Platelet Count 161 # Mean Platelet Volume Neutrophils % 87.7 H Lymphocytes % 4.6 L Monocytes % 6.1 Eosinophils % 0.7 Basophils % 0.1 Nucleated Red Blood Cells % 0.0 Neutrophils # 8.7 H Lymphocytes # 0.5 L Monocytes # 0.6 Eosinophils # 0.1 Basophils # 0.0 Nucleated Red Blood Cells # 0.0 Sodium Level 138 Potassium Level 4.1 Chloride Level 96 L Carbon Dioxide Level 21 Anion Gap 25 H Blood Urea Nitrogen 149 H Creatinine 4.34 H Glucose Level 108 Calcium Level 8.9 Total Bilirubin 30.0 H Direct Bilirubin 25.70 *H Indirect Bilirubin 4.3 H Aspartate Amino Transf (AST/SGOT) 56 H Alanine Aminotransferase (ALT/SGPT) 60 Alkaline Phosphatase 525 H Total Protein 8.0 # Albumin 4.0 Globulin 4.00 H Albumin/Globulin Ratio 1.00 Medications Medications Current Medications Enoxaparin Sodium (Lovenox) 30 mg DAILY SC Last administered on 04/12/17 09:18 ; Admin Dose 30 MG; Start 04/12/17 at 09:00 Hydromorphone HCl (Dilaudid SUPERVISOR SULFURIC ACID PLANT) 0.3 MG/HR CONTINUOUS R... Q4PCA IV Last administered on 04/12/17 10:43; Admin Dose 6 MG; Start 04/12/17 at 09:00 KEILY ROMANO MD Apr 12, 2017 13:48
--- NOTE | 2017-04-12 13:48 | PN ---
Date/Time of Note Date/Time of Note DATE: 04/12/17 TIME: 13:47 Assessment/Plan VTE Prophylaxis VTE Prophylaxis Intervention: heparin Lines/Catheters IV [facility] Saline Lock Urinary Cath still in place: No Assessment/Plan Chief Complaint/Hosp Course 57 yo male with stage IV pancreatic cancer presenting with obstructive jaundice - Pain control w MASTER COASTAL WATERS per Dr Brown - Consideration of ERCP which would be a palliative procedure, leaning against it - Hospice consulted, hopefully can be placed in SNF DNR/DNI Problems: Subjective 24 Hr Interval Summary Free Text/Dictation Seems to be leaning against ERCP Started on MASTER COASTAL WATERS Exam/Review of Systems Vital Signs Vitals Vital Signs Date Time Temp Pulse Resp B/P Pulse Ox O2 Delivery O2 Flow Rate FiO2 04/12/17 07:46 98.0 87 18 125/76 99 04/11/17 16:00 Room Air Intake and Output 04/11/17 04/11/17 04/12/17 15:00 23:00 07:00 Intake Total 620 ml Output Total 400 ml Balance 220 ml Results Result Diagram: 04/12/17 0441 04/12/17 0441 Results 24 hrs Laboratory Tests Test 04/11/17 17:30 04/11/17 19:21 04/11/17 22:14 04/11/17 23:50 Lactic Acid Level 1.5 1.1 1.0 Urine Color MEG Urine Clarity CLEAR Urine pH 5.0 Urine Specific [place] 1.014 Urine Ketones NEGATIVE Urine Nitrite NEGATIVE Urine Bilirubin 2+ H Urine Urobilinogen 2+ H Urine Leukocyte Esterase NEGATIVE Urine Microscopic RBC 6 H Urine Microscopic WBC 4 Urine Hemoglobin 1+ H Urine Random Sodium < 13 L Urine Glucose NEGATIVE Urine Total Protein 1+ H Test 04/12/17 04:41 White Blood Count 9.9 Red Blood Count 3.97 L Hemoglobin 12.3 L Hematocrit 32.8 L Mean Corpuscular Volume 82.6 Mean Corpuscular Hemoglobin 31.0 Mean Corpuscular Hemoglobin Concent 37.5 H Red Cell Distribution Width 21.0 H Platelet Count 161 # Mean Platelet Volume Neutrophils % 87.7 H Lymphocytes % 4.6 L Monocytes % 6.1 Eosinophils % 0.7 Basophils % 0.1 Nucleated Red Blood Cells % 0.0 Neutrophils # 8.7 H Lymphocytes # 0.5 L Monocytes # 0.6 Eosinophils # 0.1 Basophils # 0.0 Nucleated Red Blood Cells # 0.0 Sodium Level 138 Potassium Level 4.1 Chloride Level 96 L Carbon Dioxide Level 21 Anion Gap 25 H Blood Urea Nitrogen 149 H Creatinine 4.34 H Glucose Level 108 Calcium Level 8.9 Total Bilirubin 30.0 H Direct Bilirubin 25.70 *H Indirect Bilirubin 4.3 H Aspartate Amino Transf (AST/SGOT) 56 H Alanine Aminotransferase (ALT/SGPT) 60 Alkaline Phosphatase 525 H Total Protein 8.0 # Albumin 4.0 Globulin 4.00 H Albumin/Globulin Ratio 1.00 Medications Medications Current Medications Enoxaparin Sodium (Lovenox) 30 mg DAILY SC Last administered on 04/12/17 09:18 ; Admin Dose 30 MG; Start 04/12/17 at 09:00 Hydromorphone HCl (Dilaudid MASTER COASTAL WATERS) 0.3 MG/HR CONTINUOUS R... Q4PCA IV Last administered on 04/12/17 10:43; Admin Dose 6 MG; Start 04/12/17 at 09:00 KEILY ROMANO MD Apr 12, 2017 13:48
[2017-04-12 14:43] VITALS: BP 123/71; RESP 18
[2017-04-12] MEDS ORDERED: VITAMIN A & D 5 GM OINT PACKET TOP ONE (16:38)
[2017-04-12 20:19] VITALS: BP 117/65; RESP 20
[2017-04-12] MEDS: NYSTATIN 15 GM OINT TOP SCH (20:54)
[2017-04-13 01:16] VITALS: BP 129/64; RESP 18
[2017-04-13] MEDS: HYDROmorphONE 0.2 MG/ML PCA IV SCH ×2 (02:09→22:37)
[2017-04-13 07:00] VITALS: BP 121/67; RESP 20
[2017-04-13] MEDS: NYSTATIN 15 GM OINT TOP SCH ×2 (08:10→22:12)
[2017-04-13] MEDS: ENOXAPARIN 30 MG/0.3 ML SYG SC SCH (08:12)
--- NOTE | 2017-04-13 12:14 | PN ---
Date/Time of Note Date/Time of Note DATE: 04/13/17 TIME: 12:13 Assessment/Plan VTE Prophylaxis VTE Prophylaxis Intervention: LMWH Lines/Catheters IV Catheter Type (from Nrs): Peripheral IV Urinary Cath still in place: No Assessment/Plan Chief Complaint/Hosp Course 57 yo male with stage IV pancreatic cancer presenting with obstructive jaundice and renal failure, pending hospice placement - Pain control w DRY FINISHER per Dr Brown - Consideration of ERCP which would be a palliative procedure, leaning against it - Hospice consulted, hopefully can be placed in SNF DNR/DNI Problems: Subjective 24 Hr Interval Summary Free Text/Dictation No change to clinical status Pain adequately controlled Awaiting placement Does not want ERCP Exam/Review of Systems Vital Signs Vitals Vital Signs Date Time Temp Pulse Resp B/P Pulse Ox O2 Delivery O2 Flow Rate FiO2 04/13/17 07:00 98.6 76 20 121/67 100 04/11/17 16:00 Room Air Intake and Output 04/12/17 04/12/17 04/13/17 15:00 23:00 07:00 Intake Total 1040 ml 740 ml Output Total 1000 ml 500 ml Balance 40 ml 240 ml Exam Jaundiced Alert/orietned Pleasant Results Result Diagram: 04/12/17 0441 04/12/17 0441 Medications Medications Current Medications Enoxaparin Sodium (Lovenox) 30 mg DAILY SC Last administered on 04/13/17 08:12 ; Admin Dose 30 MG; Start 04/12/17 at 09:00 Hydromorphone HCl (Dilaudid DRY FINISHER) 0.3 MG/HR CONTINUOUS R... Q4PCA IV Last administered on 04/13/17 02:09; Admin Dose 6 MG; Start 04/12/17 at 09:00 Nystatin (Nystatin Oint) 1 applic BID TOP Last administered on 04/13/17 08:10 ; Admin Dose 1 APPLIC; Start 04/12/17 at 21:00 KEILY ROMANO MD Apr 13, 2017 12:14
--- NOTE | 2017-04-13 12:14 | PN ---
Date/Time of Note Date/Time of Note DATE: 04/13/17 TIME: 12:13 Assessment/Plan VTE Prophylaxis VTE Prophylaxis Intervention: LMWH Lines/Catheters IV Catheter Type (from Nrs): Peripheral IV Urinary Cath still in place: No Assessment/Plan Chief Complaint/Hosp Course 57 yo male with stage IV pancreatic cancer presenting with obstructive jaundice and renal failure, pending hospice placement - Pain control w ONCOLOGY SPECIALIST per Dr Brown - Consideration of ERCP which would be a palliative procedure, leaning against it - Hospice consulted, hopefully can be placed in SNF DNR/DNI Problems: Subjective 24 Hr Interval Summary Free Text/Dictation No change to clinical status Pain adequately controlled Awaiting placement Does not want ERCP Exam/Review of Systems Vital Signs Vitals Vital Signs Date Time Temp Pulse Resp B/P Pulse Ox O2 Delivery O2 Flow Rate FiO2 04/13/17 07:00 98.6 76 20 121/67 100 04/11/17 16:00 Room Air Intake and Output 04/12/17 04/12/17 04/13/17 15:00 23:00 07:00 Intake Total 1040 ml 740 ml Output Total 1000 ml 500 ml Balance 40 ml 240 ml Exam Jaundiced Alert/orietned Pleasant Results Result Diagram: 04/12/17 0441 04/12/17 0441 Medications Medications Current Medications Enoxaparin Sodium (Lovenox) 30 mg DAILY SC Last administered on 04/13/17 08:12 ; Admin Dose 30 MG; Start 04/12/17 at 09:00 Hydromorphone HCl (Dilaudid ONCOLOGY SPECIALIST) 0.3 MG/HR CONTINUOUS R... Q4PCA IV Last administered on 04/13/17 02:09; Admin Dose 6 MG; Start 04/12/17 at 09:00 Nystatin (Nystatin Oint) 1 applic BID TOP Last administered on 04/13/17 08:10 ; Admin Dose 1 APPLIC; Start 04/12/17 at 21:00 KEILY ROMANO MD Apr 13, 2017 12:14
--- NOTE | 2017-04-13 12:14 | PN ---
Date/Time of Note Date/Time of Note DATE: 04/13/17 TIME: 12:13 Assessment/Plan VTE Prophylaxis VTE Prophylaxis Intervention: LMWH Lines/Catheters IV Catheter Type (from Nrs): Peripheral IV Urinary Cath still in place: No Assessment/Plan Chief Complaint/Hosp Course 57 yo male with stage IV pancreatic cancer presenting with obstructive jaundice and renal failure, pending hospice placement - Pain control w PREPARATION SUPERVISOR FREEZING per Dr Brown - Consideration of ERCP which would be a palliative procedure, leaning against it - Hospice consulted, hopefully can be placed in SNF DNR/DNI Problems: Subjective 24 Hr Interval Summary Free Text/Dictation No change to clinical status Pain adequately controlled Awaiting placement Does not want ERCP Exam/Review of Systems Vital Signs Vitals Vital Signs Date Time Temp Pulse Resp B/P Pulse Ox O2 Delivery O2 Flow Rate FiO2 04/13/17 07:00 98.6 76 20 121/67 100 04/11/17 16:00 Room Air Intake and Output 04/12/17 04/12/17 04/13/17 15:00 23:00 07:00 Intake Total 1040 ml 740 ml Output Total 1000 ml 500 ml Balance 40 ml 240 ml Exam Jaundiced Alert/orietned Pleasant Results Result Diagram: 04/12/17 0441 04/12/17 0441 Medications Medications Current Medications Enoxaparin Sodium (Lovenox) 30 mg DAILY SC Last administered on 04/13/17 08:12 ; Admin Dose 30 MG; Start 04/12/17 at 09:00 Hydromorphone HCl (Dilaudid PREPARATION SUPERVISOR FREEZING) 0.3 MG/HR CONTINUOUS R... Q4PCA IV Last administered on 04/13/17 02:09; Admin Dose 6 MG; Start 04/12/17 at 09:00 Nystatin (Nystatin Oint) 1 applic BID TOP Last administered on 04/13/17 08:10 ; Admin Dose 1 APPLIC; Start 04/12/17 at 21:00 KEILY ROMANO MD Apr 13, 2017 12:14
[2017-04-13 14:00] VITALS: BP 108/65; RESP 18
--- NOTE | 2017-04-13 16:07 | PN ---
Date/Time of Note Date/Time of Note DATE: 04/13/17 TIME: 16:05 Assessment/Plan VTE Prophylaxis VTE Prophylaxis Intervention: SCD's Lines/Catheters IV [facility]ter Type (from [facility]): Peripheral IV Urinary Cath still in place: No Assessment/Plan Chief Complaint/Hosp Course Summary Assessment and Plan: Assessment: Pancreatic Cancer Possible metastasis to liver Hyperbilirubinemia-secondary to pancreatic cancer Plan: No change patient does not want any invasive procedures including ERCP only c/o minimal pruritus-but does not affect current well-being Hospice has been consulted- looking to transfer patient to SNF Patient seen in collaboration with Dr. Lara Subjective: Course reviewed with nursing staff Patient interviewed and examined All labs, imaging and other results reviewed No change in patient condition, doing well with EPIDEMIOLOGY INTERNSHIP Pt does want any invasive procedures including ERCP Possible plan for hospice with discharge to SNF. PHYSICAL EXAMINATION: GENERAL: chronically ill, frail, jaundice, alert & oriented x 3, SKIN: No lesions, no stigmata chronic liver disease, no evidence of bleeding diathesis LYMPHATIC: No palpable lymphadenopathy. HEAD: Normocephalic, atraumatic, no tenderness. EYES: Pupils equal reactive to light and accommodation, full extraocular movements, sclera clear, non-icteric, no discharge. EARS/NOSE AND THROAT: Ears normal, nose normal, oropharynx normal, oral membranes well hydrated without lesions. NECK: Supple, no masses, thyroid normal, JVP within normal limits, carotids normal without bruits. CHEST: Inspection within normal limits. CARDIOVASCULAR: Heart: Regular rate and rhythm, no murmurs, gallops or rubs. Peripheral pulses present within normal limits, no cyanosis, clubbing or edemas. No pulsatile abdominal mass RESPIRATORY: Lungs clear to auscultation GASTROINTESTINAL AND LIVER: Abdomen: Soft, non tenderness, distended, no hernias , no masses, no guarding, no rebound tenderness, normoactive bowel sounds. Rectal: Deferred. GENITOURINARY: Male genitalia within normal limits. EXTREMITIES: No cyanosis, clubbing. Positive for BLE edema. Problems: Exam/Review of Systems Vital Signs Vitals Vital Signs Date Time Temp Pulse Resp B/P Pulse Ox O2 Delivery O2 Flow Rate FiO2 04/13/17 14:00 97.8 88 18 108/65 100 04/11/17 16:00 Room Air Intake and Output 04/12/17 04/12/17 04/13/17 15:00 23:00 07:00 Intake Total 1040 ml 740 ml Output Total 1000 ml 500 ml Balance 40 ml 240 ml Results Result Diagram: 04/12/17 04404/12/17 044 Medications Medications Current Medications Enoxaparin Sodium (Lovenox) 30 mg DAILY SC Last administered on 04/13/17 08:12 ; Admin Dose 30 MG; Start 04/12/17 at 09:00 Hydromorphone HCl (Dilaudid EPIDEMIOLOGY INTERNSHIP) 0.3 MG/HR CONTINUOUS R... Q4PCA IV Last administered on 04/13/17 02:09; Admin Dose 6 MG; Start 04/12/17 at 09:00 Nystatin (Nystatin Oint) 1 applic BID TOP Last administered on 04/13/17 08:10 ; Admin Dose 1 APPLIC; Start 04/12/17 at 21:00 ARIK FLOREZ Apr 13, 2017 16:07
--- NOTE | 2017-04-13 16:07 | PN ---
Date/Time of Note Date/Time of Note DATE: 04/13/17 TIME: 16:05 Assessment/Plan VTE Prophylaxis VTE Prophylaxis Intervention: SCD's Lines/Catheters IV C[facility]ter Type (from [facility]): Peripheral IV Urinary Cath still in place: No Assessment/Plan Chief Complaint/Hosp Course Summary Assessment and Plan: Assessment: Pancreatic Cancer Possible metastasis to liver Hyperbilirubinemia-secondary to pancreatic cancer Plan: No change patient does not want any invasive procedures including ERCP only c/o minimal pruritus-but does not affect current well-being Hospice has been consulted- looking to transfer patient to SNF Patient seen in collaboration with Dr. Lara Subjective: Course reviewed with nursing staff Patient interviewed and examined All labs, imaging and other results reviewed No change in patient condition, doing well with POUND ATTENDANT Pt does want any invasive procedures including ERCP Possible plan for hospice with discharge to SNF. PHYSICAL EXAMINATION: GENERAL: chronically ill, frail, jaundice, alert & oriented x 3, SKIN: No lesions, no stigmata chronic liver disease, no evidence of bleeding diathesis LYMPHATIC: No palpable lymphadenopathy. HEAD: Normocephalic, atraumatic, no tenderness. EYES: Pupils equal reactive to light and accommodation, full extraocular movements, sclera clear, non-icteric, no discharge. EARS/NOSE AND THROAT: Ears normal, nose normal, oropharynx normal, oral membranes well hydrated without lesions. NECK: Supple, no masses, thyroid normal, JVP within normal limits, carotids normal without bruits. CHEST: Inspection within normal limits. CARDIOVASCULAR: Heart: Regular rate and rhythm, no murmurs, gallops or rubs. Peripheral pulses present within normal limits, no cyanosis, clubbing or edemas. No pulsatile abdominal mass RESPIRATORY: Lungs clear to auscultation GASTROINTESTINAL AND LIVER: Abdomen: Soft, non tenderness, distended, no hernias , no masses, no guarding, no rebound tenderness, normoactive bowel sounds. Rectal: Deferred. GENITOURINARY: Male genitalia within normal limits. EXTREMITIES: No cyanosis, clubbing. Positive for BLE edema. Problems: Exam/Review of Systems Vital Signs Vitals Vital Signs Date Time Temp Pulse Resp B/P Pulse Ox O2 Delivery O2 Flow Rate FiO2 04/13/17 14:00 97.8 88 18 108/65 100 04/11/17 16:00 Room Air Intake and Output 04/12/17 04/12/17 04/13/17 15:00 23:00 07:00 Intake Total 1040 ml 740 ml Output Total 1000 ml 500 ml Balance 40 ml 240 ml Results Result Diagram: 04/12/17 04404/12/17 044 Medications Medications Current Medications Enoxaparin Sodium (Lovenox) 30 mg DAILY SC Last administered on 04/13/17 08:12 ; Admin Dose 30 MG; Start 04/12/17 at 09:00 Hydromorphone HCl (Dilaudid POUND ATTENDANT) 0.3 MG/HR CONTINUOUS R... Q4PCA IV Last administered on 04/13/17 02:09; Admin Dose 6 MG; Start 04/12/17 at 09:00 Nystatin (Nystatin Oint) 1 applic BID TOP Last administered on 04/13/17 08:10 ; Admin Dose 1 APPLIC; Start 04/12/17 at 21:00 ARIK FLOREZ Apr 13, 2017 16:07
[2017-04-13 20:31] VITALS: BP 105/59; RESP 20
[2017-04-14 00:40] VITALS: BP 109/71; RESP 20
[2017-04-14 08:07] VITALS: BP 106/55; RESP 18
[2017-04-14] MEDS: NYSTATIN 15 GM OINT TOP SCH ×2 (10:22→21:12)
[2017-04-14] MEDS: ENOXAPARIN 30 MG/0.3 ML SYG SC SCH (10:24)
--- NOTE | 2017-04-14 13:45 | PN ---
Date/Time of Note Date/Time of Note DATE: 04/14/17 TIME: 13:44 Assessment/Plan VTE Prophylaxis VTE Prophylaxis Intervention: LMWH Lines/Catheters IV Catheter Type (from Nrs): Peripheral IV Urinary Cath still in place: No Assessment/Plan Chief Complaint/Hosp Course 57 yo male with stage IV pancreatic cancer presenting with obstructive jaundice and renal failure, pending hospice placement - Pain control w GENERATOR WORKER per Dr Brown - Consideration of ERCP which would be a palliative procedure, leaning against it - Hospice consulted, hopefully can be placed in SNF DNR/DNI Problems: Subjective 24 Hr Interval Summary Free Text/Dictation VITAS hospice involved, plannign for SNF Exam/Review of Systems Vital Signs Vitals Vital Signs Date Time Temp Pulse Resp B/P Pulse Ox O2 Delivery O2 Flow Rate FiO2 04/14/17 08:07 97.6 85 18 106/55 95 04/11/17 16:00 Room Air Intake and Output 04/13/17 04/13/17 04/14/17 15:00 23:00 07:00 Intake Total 840 ml 2200 ml Output Total 600 ml 600 ml Balance 240 ml 1600 ml Results Result Diagram: 04/12/17 0441 04/12/17 0441 Medications Medications Current Medications Enoxaparin Sodium (Lovenox) 30 mg DAILY SC Last administered on 04/14/17 10:24 ; Admin Dose 30 MG; Start 04/12/17 at 09:00 Hydromorphone HCl (Dilaudid GENERATOR WORKER) 0.3 MG/HR CONTINUOUS R... Q4PCA IV Last administered on 04/13/17 22:37; Admin Dose 6 MG; Start 04/12/17 at 09:00 Nystatin (Nystatin Oint) 1 applic BID TOP Last administered on 04/14/17 10:22 ; Admin Dose 1 APPLIC; Start 04/12/17 at 21:00 KEILY ROMANO MD Apr 14, 2017 13:45
--- NOTE | 2017-04-14 13:45 | PN ---
Date/Time of Note Date/Time of Note DATE: 04/14/17 TIME: 13:44 Assessment/Plan VTE Prophylaxis VTE Prophylaxis Intervention: LMWH Lines/Catheters IV Catheter Type (from Nrs): Peripheral IV Urinary Cath still in place: No Assessment/Plan Chief Complaint/Hosp Course 57 yo male with stage IV pancreatic cancer presenting with obstructive jaundice and renal failure, pending hospice placement - Pain control w PRINCIPAL ENGINEER per Dr Brown - Consideration of ERCP which would be a palliative procedure, leaning against it - Hospice consulted, hopefully can be placed in SNF DNR/DNI Problems: Subjective 24 Hr Interval Summary Free Text/Dictation VITAS hospice involved, plannign for SNF Exam/Review of Systems Vital Signs Vitals Vital Signs Date Time Temp Pulse Resp B/P Pulse Ox O2 Delivery O2 Flow Rate FiO2 04/14/17 08:07 97.6 85 18 106/55 95 04/11/17 16:00 Room Air Intake and Output 04/13/17 04/13/17 04/14/17 15:00 23:00 07:00 Intake Total 840 ml 2200 ml Output Total 600 ml 600 ml Balance 240 ml 1600 ml Results Result Diagram: 04/12/17 0441 04/12/17 0441 Medications Medications Current Medications Enoxaparin Sodium (Lovenox) 30 mg DAILY SC Last administered on 04/14/17 10:24 ; Admin Dose 30 MG; Start 04/12/17 at 09:00 Hydromorphone HCl (Dilaudid PRINCIPAL ENGINEER) 0.3 MG/HR CONTINUOUS R... Q4PCA IV Last administered on 04/13/17 22:37; Admin Dose 6 MG; Start 04/12/17 at 09:00 Nystatin (Nystatin Oint) 1 applic BID TOP Last administered on 04/14/17 10:22 ; Admin Dose 1 APPLIC; Start 04/12/17 at 21:00 KEILY ROMANO MD Apr 14, 2017 13:45
--- NOTE | 2017-04-14 13:45 | PN ---
Date/Time of Note Date/Time of Note DATE: 04/14/17 TIME: 13:44 Assessment/Plan VTE Prophylaxis VTE Prophylaxis Intervention: LMWH Lines/Catheters IV Catheter Type (from Nrs): Peripheral IV Urinary Cath still in place: No Assessment/Plan Chief Complaint/Hosp Course 57 yo male with stage IV pancreatic cancer presenting with obstructive jaundice and renal failure, pending hospice placement - Pain control w MARINE MAMMAL TRAINER per Dr Brown - Consideration of ERCP which would be a palliative procedure, leaning against it - Hospice consulted, hopefully can be placed in SNF DNR/DNI Problems: Subjective 24 Hr Interval Summary Free Text/Dictation VITAS hospice involved, plannign for SNF Exam/Review of Systems Vital Signs Vitals Vital Signs Date Time Temp Pulse Resp B/P Pulse Ox O2 Delivery O2 Flow Rate FiO2 04/14/17 08:07 97.6 85 18 106/55 95 04/11/17 16:00 Room Air Intake and Output 04/13/17 04/13/17 04/14/17 15:00 23:00 07:00 Intake Total 840 ml 2200 ml Output Total 600 ml 600 ml Balance 240 ml 1600 ml Results Result Diagram: 04/12/17 0441 04/12/17 0441 Medications Medications Current Medications Enoxaparin Sodium (Lovenox) 30 mg DAILY SC Last administered on 04/14/17 10:24 ; Admin Dose 30 MG; Start 04/12/17 at 09:00 Hydromorphone HCl (Dilaudid MARINE MAMMAL TRAINER) 0.3 MG/HR CONTINUOUS R... Q4PCA IV Last administered on 04/13/17 22:37; Admin Dose 6 MG; Start 04/12/17 at 09:00 Nystatin (Nystatin Oint) 1 applic BID TOP Last administered on 04/14/17 10:22 ; Admin Dose 1 APPLIC; Start 04/12/17 at 21:00 KEILY ROMANO MD Apr 14, 2017 13:45
--- NOTE | 2017-04-14 14:03 | PN ---
Date/Time of Note Date/Time of Note DATE: 04/14/17 TIME: 14:01 Assessment/Plan VTE Prophylaxis VTE Prophylaxis Intervention: SCD's Lines/Catheters IV Catheter Type (from [facility]): Peripheral IV Urinary Cath still in place: No Assessment/Plan Chief Complaint/Hosp Course Assessment: Advanced and likely metastatic pancreatic Cancer Hyperbilirubinemia-secondary to pancreatic cancer Patient refused treatment Plan: Continue palliative care We will sign off and follow upon request Subjective: Course reviewed with nursing staff Patient interviewed and examined All labs, imaging and other results reviewed The patient appears comfortable Denies any significant pain Exam: General: well developed, poorly nourished, alert and oriented x3 , in no acute distress Skin: Deeply jaundiced. No lesions, no stigmata chronic liver disease, no evidence of bleeding diathesis Lymphatic: No palpable lymphadenopathy HEENT: No lesions Cardiovascular: Heart: Regular rate and rhythm, no murmurs, gallops or rubs. Peripheral pulses present within normal limits, no cyanosis, clubbing or edemas. No pulsatile abdominal mass Respiratory: Lungs clear to auscultation and percussion, no wheezing, no rubs Gastrointestinal and Liver: Abdomen: Soft, non tenderness, not distended, no hernias, no masses, no organomegaly, no ascites, no guarding, no rebound tenderness, normoactive bowel sounds. Extremities: No cyanosis, clubbing, or edema. Diagnostic Studies: Available data and images were reviewed personally. See reports. Significant results and findings are addressed here or in the assessment and plan. Problems: Exam/Review of Systems Vital Signs Vitals Vital Signs Date Time Temp Pulse Resp B/P Pulse Ox O2 Delivery O2 Flow Rate FiO2 04/14/17 08:07 97.6 85 18 106/55 95 04/11/17 16:00 Room Air Intake and Output 04/13/17 04/13/17 04/14/17 15:00 23:00 07:00 Intake Total 840 ml 2200 ml Output Total 600 ml 600 ml Balance 240 ml 1600 ml Results Result Diagram: 04/12/17 0441 04/12/17 044 Medications Medications Current Medications Enoxaparin Sodium (Lovenox) 30 mg DAILY SC Last administered on 04/14/17t 10:24 ; Admin Dose 30 MG; Start 04/12/17 at 09:00 Hydromorphone HCl (Dilaudid CIRCLE CUTTING SAW OPERATOR) 0.3 MG/HR CONTINUOUS R... Q4PCA IV Last administered on 04/13/17 22:37; Admin Dose 6 MG; Start 04/12/17 at 09:00 Nystatin (Nystatin Oint) 1 applic BID TOP Last administered on 04/14/17 10:22 ; Admin Dose 1 APPLIC; Start 04/12/17 at 21:00 ADARSH URRUTIA MD Apr 14, 2017 14:03
--- NOTE | 2017-04-14 14:03 | PN ---
Date/Time of Note Date/Time of Note DATE: 04/14/17 TIME: 14:01 Assessment/Plan VTE Prophylaxis VTE Prophylaxis Intervention: SCD's Lines/Catheters IV C[facility]ter Type (from [facility]): Peripheral IV Urinary Cath still in place: No Assessment/Plan Chief Complaint/Hosp Course Assessment: Advanced and likely metastatic pancreatic Cancer Hyperbilirubinemia-secondary to pancreatic cancer Patient refused treatment Plan: Continue palliative care We will sign off and follow upon request Subjective: Course reviewed with nursing staff Patient interviewed and examined All labs, imaging and other results reviewed The patient appears comfortable Denies any significant pain Exam: General: well developed, poorly nourished, alert and oriented x3 , in no acute distress Skin: Deeply jaundiced. No lesions, no stigmata chronic liver disease, no evidence of bleeding diathesis Lymphatic: No palpable lymphadenopathy HEENT: No lesions Cardiovascular: Heart: Regular rate and rhythm, no murmurs, gallops or rubs. Peripheral pulses present within normal limits, no cyanosis, clubbing or edemas. No pulsatile abdominal mass Respiratory: Lungs clear to auscultation and percussion, no wheezing, no rubs Gastrointestinal and Liver: Abdomen: Soft, non tenderness, not distended, no hernias, no masses, no organomegaly, no ascites, no guarding, no rebound tenderness, normoactive bowel sounds. Extremities: No cyanosis, clubbing, or edema. Diagnostic Studies: Available data and images were reviewed personally. See reports. Significant results and findings are addressed here or in the assessment and plan. Problems: Exam/Review of Systems Vital Signs Vitals Vital Signs Date Time Temp Pulse Resp B/P Pulse Ox O2 Delivery O2 Flow Rate FiO2 04/14/17 08:07 97.6 85 18 106/55 95 04/11/17 16:00 Room Air Intake and Output 04/13/17 04/13/17 04/14/17 15:00 23:00 07:00 Intake Total 840 ml 2200 ml Output Total 600 ml 600 ml Balance 240 ml 1600 ml Results Result Diagram: 04/12/17 0441 04/12/17 044 Medications Medications Current Medications Enoxaparin Sodium (Lovenox) 30 mg DAILY SC Last administered on 04/14/17t 10:24 ; Admin Dose 30 MG; Start 04/12/17 at 09:00 Hydromorphone HCl (Dilaudid CORRUGATED SHEET MATERIAL SHEETER) 0.3 MG/HR CONTINUOUS R... Q4PCA IV Last administered on 04/13/17 22:37; Admin Dose 6 MG; Start 04/12/17 at 09:00 Nystatin (Nystatin Oint) 1 applic BID TOP Last administered on 04/14/17 10:22 ; Admin Dose 1 APPLIC; Start 04/12/17 at 21:00 ADARSH URRUTIA MD Apr 14, 2017 14:03
[2017-04-14] MEDS: HYDROmorphONE 0.2 MG/ML PCA IV SCH (17:43)
[2017-04-14 20:00] VITALS: BP 111/70; RESP 18
[2017-04-14] MEDS ORDERED: VITAMIN A & D 5 GM OINT PACKET TOP ONE (21:14)
[2017-04-15 02:06] VITALS: BP 107/68; RESP 20
[2017-04-15 08:00] VITALS: BP 111/71; RESP 19
[2017-04-15] MEDS: NYSTATIN 15 GM OINT TOP SCH ×2 (09:58→20:44)
[2017-04-15] MEDS: ENOXAPARIN 30 MG/0.3 ML SYG SC SCH (10:13)
[2017-04-15] MEDS: HYDROmorphONE 0.2 MG/ML PCA IV SCH (13:13)
[2017-04-15 14:00] VITALS: BP 121/69; RESP 19
--- NOTE | 2017-04-15 15:32 | PN ---
Date/Time of Note Date/Time of Note DATE: 04/15/17 TIME: 15:31 Assessment/Plan VTE Prophylaxis VTE Prophylaxis Intervention: LMWH Lines/Catheters IV Catheter Type (from Nrsg): Peripheral IV Urinary Cath still in place: No Assessment/Plan Chief Complaint/Hosp Course 57 yo male with stage IV pancreatic cancer presenting with obstructive jaundice and renal failure, pending hospice placement - Pain control w MINE CAPTAIN per Dr Brown - Declined ERCP - Hospice consulted, hopefully can be placed in SNF DNR/DNI Problems: Subjective 24 Hr Interval Summary Free Text/Dictation Pain controlled Awaiting SNF placement w hospice Exam/Review of Systems Vital Signs Vitals Vital Signs Date Time Temp Pulse Resp B/P Pulse Ox O2 Delivery O2 Flow Rate FiO2 04/15/17 14:00 98.0 89 19 121/69 98 04/11/17 16:00 Room Air Intake and Output 04/14/17 04/14/17 04/15/17 15:00 23:00 07:00 Intake Total 900 ml 320 ml Output Total 750 ml 1050 ml Balance 150 ml -730 ml Results Result Diagram: 04/12/17 0441 04/12/17 0441 Medications Medications Current Medications Enoxaparin Sodium (Lovenox) 30 mg DAILY SC Last administered on 04/15/17 10:13 ; Admin Dose 30 MG; Start 04/12/17 at 09:00 Hydromorphone HCl (Dilaudid MINE CAPTAIN) 0.3 MG/HR CONTINUOUS R... Q4PCA IV Last administered on 04/15/17 13:13; Admin Dose 6 MG; Start 04/12/17 at 09:00 Nystatin (Nystatin Oint) 1 applic BID TOP Last administered on 04/15/17 09:58 ; Admin Dose 1 APPLIC; Start 04/12/17 at 21:00 KEILY ROMANO MD Apr 15, 2017 15:32
--- NOTE | 2017-04-15 15:32 | PN ---
Date/Time of Note Date/Time of Note DATE: 04/15/17 TIME: 15:31 Assessment/Plan VTE Prophylaxis VTE Prophylaxis Intervention: LMWH Lines/Catheters IV Catheter Type (from Nrsg): Peripheral IV Urinary Cath still in place: No Assessment/Plan Chief Complaint/Hosp Course 57 yo male with stage IV pancreatic cancer presenting with obstructive jaundice and renal failure, pending hospice placement - Pain control w DIVERSIFIED CROPS SUPERVISOR per Dr Brown - Declined ERCP - Hospice consulted, hopefully can be placed in SNF DNR/DNI Problems: Subjective 24 Hr Interval Summary Free Text/Dictation Pain controlled Awaiting SNF placement w hospice Exam/Review of Systems Vital Signs Vitals Vital Signs Date Time Temp Pulse Resp B/P Pulse Ox O2 Delivery O2 Flow Rate FiO2 04/15/17 14:00 98.0 89 19 121/69 98 04/11/17 16:00 Room Air Intake and Output 04/14/17 04/14/17 04/15/17 15:00 23:00 07:00 Intake Total 900 ml 320 ml Output Total 750 ml 1050 ml Balance 150 ml -730 ml Results Result Diagram: 04/12/17 0441 04/12/17 0441 Medications Medications Current Medications Enoxaparin Sodium (Lovenox) 30 mg DAILY SC Last administered on 04/15/17 10:13 ; Admin Dose 30 MG; Start 04/12/17 at 09:00 Hydromorphone HCl (Dilaudid DIVERSIFIED CROPS SUPERVISOR) 0.3 MG/HR CONTINUOUS R... Q4PCA IV Last administered on 04/15/17 13:13; Admin Dose 6 MG; Start 04/12/17 at 09:00 Nystatin (Nystatin Oint) 1 applic BID TOP Last administered on 04/15/17 09:58 ; Admin Dose 1 APPLIC; Start 04/12/17 at 21:00 KEILY ROMANO MD Apr 15, 2017 15:32
--- NOTE | 2017-04-15 15:32 | PN ---
Date/Time of Note Date/Time of Note DATE: 04/15/17 TIME: 15:31 Assessment/Plan VTE Prophylaxis VTE Prophylaxis Intervention: LMWH Lines/Catheters IV Catheter Type (from Nrsg): Peripheral IV Urinary Cath still in place: No Assessment/Plan Chief Complaint/Hosp Course 57 yo male with stage IV pancreatic cancer presenting with obstructive jaundice and renal failure, pending hospice placement - Pain control w TWIST MAKER per Dr Brown - Declined ERCP - Hospice consulted, hopefully can be placed in SNF DNR/DNI Problems: Subjective 24 Hr Interval Summary Free Text/Dictation Pain controlled Awaiting SNF placement w hospice Exam/Review of Systems Vital Signs Vitals Vital Signs Date Time Temp Pulse Resp B/P Pulse Ox O2 Delivery O2 Flow Rate FiO2 04/15/17 14:00 98.0 89 19 121/69 98 04/11/17 16:00 Room Air Intake and Output 04/14/17 04/14/17 04/15/17 15:00 23:00 07:00 Intake Total 900 ml 320 ml Output Total 750 ml 1050 ml Balance 150 ml -730 ml Results Result Diagram: 04/12/17 0441 04/12/17 0441 Medications Medications Current Medications Enoxaparin Sodium (Lovenox) 30 mg DAILY SC Last administered on 04/15/17 10:13 ; Admin Dose 30 MG; Start 04/12/17 at 09:00 Hydromorphone HCl (Dilaudid TWIST MAKER) 0.3 MG/HR CONTINUOUS R... Q4PCA IV Last administered on 04/15/17 13:13; Admin Dose 6 MG; Start 04/12/17 at 09:00 Nystatin (Nystatin Oint) 1 applic BID TOP Last administered on 04/15/17 09:58 ; Admin Dose 1 APPLIC; Start 04/12/17 at 21:00 KEILY ROMANO MD Apr 15, 2017 15:32
[2017-04-15 19:29] VITALS: BP 115/67; RESP 18
[2017-04-16 02:00] VITALS: BP 116/72; RESP 18
[2017-04-16] MEDS ORDERED: VITAMIN A & D 5 GM OINT PACKET TOP ONE (05:30)
[2017-04-16] MEDS: HYDROmorphONE 0.2 MG/ML PCA IV SCH (07:37)
[2017-04-16 07:54] VITALS: BP 113/69; PULSE 92; RESP 16
[2017-04-16] MEDS: NYSTATIN 15 GM OINT TOP SCH ×2 (08:57→20:56)
[2017-04-16] MEDS: ENOXAPARIN 30 MG/0.3 ML SYG SC SCH (08:57)
[2017-04-16 14:22] VITALS: BP 126/68; PULSE 96; RESP 16
--- NOTE | 2017-04-16 15:40 | PN ---
Date/Time of Note Date/Time of Note DATE: 04/16/17 TIME: 15:38 Assessment/Plan VTE Prophylaxis VTE Prophylaxis Intervention: other Lines/Catheters IV Catheter Type (from Nrsg): Peripheral IV Urinary Cath still in place: No Assessment/Plan Chief Complaint/Hosp Course 1. Stage IV pancreatic cancer with obstructive jaundice and renal failure Hospice placement pending Pain control w SENIOR RESIDENT CARE DIRECTOR per Dr Brown Declined ERCP DNR/DNI Problems: Subjective 24 Hr Interval Summary Constitutional: no complaints Exam/Review of Systems Vital Signs Vitals Vital Signs Date Time Temp Pulse Resp B/P Pulse Ox O2 Delivery O2 Flow Rate FiO2 04/16/17 14:22 97.7 96 16 126/68 100 Room Air Intake and Output 04/15/17 04/15/17 04/16/17 15:00 23:00 07:00 Intake Total 510 ml 400 ml Output Total 1550 ml 450 ml Balance -1040 ml -50 ml Exam Constitutional: alert, oriented Respiratory: clear to auscultation Cardiovascular: regular rate and rhythm Gastrointestinal: soft, No distended Musculoskeletal: nl extremities to inspection Results Result Diagram: 04/12/17 0441 04/12/17 0441 Medications Medications Current Medications Enoxaparin Sodium (Lovenox) 30 mg DAILY SC Last administered on 04/16/17 08:57 ; Admin Dose 30 MG; Start 04/12/17 at 09:00 Hydromorphone HCl (Dilaudid SENIOR RESIDENT CARE DIRECTOR) 0.3 MG/HR CONTINUOUS R... Q4PCA IV Last administered on 04/16/17 07:37; Admin Dose 6 MG; Start 04/12/17 at 09:00 Nystatin (Nystatin Oint) 1 applic BID TOP Last administered on 04/16/17 08:57 ; Admin Dose 1 APPLIC; Start 04/12/17 at 21:00 MICHAEL GRAMAJO Apr 16, 2017 15:40
--- NOTE | 2017-04-16 15:40 | PN ---
Date/Time of Note Date/Time of Note DATE: 04/16/17 TIME: 15:38 Assessment/Plan VTE Prophylaxis VTE Prophylaxis Intervention: other Lines/Catheters IV Catheter Type (from Nrsg): Peripheral IV Urinary Cath still in place: No Assessment/Plan Chief Complaint/Hosp Course 1. Stage IV pancreatic cancer with obstructive jaundice and renal failure Hospice placement pending Pain control w COST CONTROL ANALYST per Dr Brown Declined ERCP DNR/DNI Problems: Subjective 24 Hr Interval Summary Constitutional: no complaints Exam/Review of Systems Vital Signs Vitals Vital Signs Date Time Temp Pulse Resp B/P Pulse Ox O2 Delivery O2 Flow Rate FiO2 04/16/17 14:22 97.7 96 16 126/68 100 Room Air Intake and Output 04/15/17 04/15/17 04/16/17 15:00 23:00 07:00 Intake Total 510 ml 400 ml Output Total 1550 ml 450 ml Balance -1040 ml -50 ml Exam Constitutional: alert, oriented Respiratory: clear to auscultation Cardiovascular: regular rate and rhythm Gastrointestinal: soft, No distended Musculoskeletal: nl extremities to inspection Results Result Diagram: 04/12/17 0441 04/12/17 0441 Medications Medications Current Medications Enoxaparin Sodium (Lovenox) 30 mg DAILY SC Last administered on 04/16/17 08:57 ; Admin Dose 30 MG; Start 04/12/17 at 09:00 Hydromorphone HCl (Dilaudid COST CONTROL ANALYST) 0.3 MG/HR CONTINUOUS R... Q4PCA IV Last administered on 04/16/17 07:37; Admin Dose 6 MG; Start 04/12/17 at 09:00 Nystatin (Nystatin Oint) 1 applic BID TOP Last administered on 04/16/17 08:57 ; Admin Dose 1 APPLIC; Start 04/12/17 at 21:00 MICHAEL GRAMAJO Apr 16, 2017 15:40
--- NOTE | 2017-04-16 15:40 | PN ---
Date/Time of Note Date/Time of Note DATE: 04/16/17 TIME: 15:38 Assessment/Plan VTE Prophylaxis VTE Prophylaxis Intervention: other Lines/Catheters IV Catheter Type (from Nrsg): Peripheral IV Urinary Cath still in place: No Assessment/Plan Chief Complaint/Hosp Course 1. Stage IV pancreatic cancer with obstructive jaundice and renal failure Hospice placement pending Pain control w PASSENGER BARGE MASTER per Dr Brown Declined ERCP DNR/DNI Problems: Subjective 24 Hr Interval Summary Constitutional: no complaints Exam/Review of Systems Vital Signs Vitals Vital Signs Date Time Temp Pulse Resp B/P Pulse Ox O2 Delivery O2 Flow Rate FiO2 04/16/17 14:22 97.7 96 16 126/68 100 Room Air Intake and Output 04/15/17 04/15/17 04/16/17 15:00 23:00 07:00 Intake Total 510 ml 400 ml Output Total 1550 ml 450 ml Balance -1040 ml -50 ml Exam Constitutional: alert, oriented Respiratory: clear to auscultation Cardiovascular: regular rate and rhythm Gastrointestinal: soft, No distended Musculoskeletal: nl extremities to inspection Results Result Diagram: 04/12/17 0441 04/12/17 0441 Medications Medications Current Medications Enoxaparin Sodium (Lovenox) 30 mg DAILY SC Last administered on 04/16/17 08:57 ; Admin Dose 30 MG; Start 04/12/17 at 09:00 Hydromorphone HCl (Dilaudid PASSENGER BARGE MASTER) 0.3 MG/HR CONTINUOUS R... Q4PCA IV Last administered on 04/16/17 07:37; Admin Dose 6 MG; Start 04/12/17 at 09:00 Nystatin (Nystatin Oint) 1 applic BID TOP Last administered on 04/16/17 08:57 ; Admin Dose 1 APPLIC; Start 04/12/17 at 21:00 MICHAEL GRAMAJO Apr 16, 2017 15:40
[2017-04-16 20:00] VITALS: BP 117/69; RESP 18
[2017-04-17 01:27] VITALS: BP 107/63; RESP 18
[2017-04-17] MEDS: HYDROmorphONE 0.2 MG/ML PCA IV SCH ×2 (03:55→22:43)
[2017-04-17 08:00] VITALS: BP 108/66; RESP 18
[2017-04-17] MEDS: ENOXAPARIN 30 MG/0.3 ML SYG SC SCH (08:45)
[2017-04-17] MEDS: NYSTATIN 15 GM OINT TOP SCH ×2 (08:46→20:43)
[2017-04-17 14:00] VITALS: BP 122/69; RESP 18
--- NOTE | 2017-04-17 16:42 | PN ---
Date/Time of Note Date/Time of Note DATE: 04/17/17 TIME: 16:42 Assessment/Plan VTE Prophylaxis VTE Prophylaxis Intervention: other Lines/Catheters IV Catheter Type (from Nrsg): Peripheral IV Urinary Cath still in place: No Assessment/Plan Chief Complaint/Hosp Course 1. Stage IV pancreatic cancer with obstructive jaundice and renal failure Hospice placement pending Pain control w IT BUSINESS SYSTEMS ANALYST per Dr Brown Declined ERCP DNR/DNI Problems: Subjective 24 Hr Interval Summary Constitutional: no complaints Exam/Review of Systems Vital Signs Vitals Vital Signs Date Time Temp Pulse Resp B/P Pulse Ox O2 Delivery O2 Flow Rate FiO2 04/17/17 14:00 97.6 94 18 122/69 100 04/16/17 14:22 Room Air Intake and Output 04/16/17 04/16/17 04/17/17 15:00 23:00 07:00 Intake Total 480 ml Output Total 500 ml Balance -20 ml Exam Constitutional: alert, oriented Respiratory: clear to auscultation Cardiovascular: regular rate and rhythm Gastrointestinal: soft, No distended Musculoskeletal: nl extremities to inspection Medications Medications Current Medications Enoxaparin Sodium (Lovenox) 30 mg DAILY SC Last administered on 04/17/17 08:45 ; Admin Dose 30 MG; Start 04/12/17 at 09:00 Hydromorphone HCl (Dilaudid IT BUSINESS SYSTEMS ANALYST) 0.3 MG/HR CONTINUOUS R... Q4PCA IV Last administered on 04/17/17 03:55; Admin Dose 6 MG; Start 04/12/17 at 09:00 Nystatin (Nystatin Oint) 1 applic BID TOP Last administered on 04/17/17 08:46 ; Admin Dose 1 APPLIC; Start 04/12/17 at 21:00 MICHAEL GRAMAJO Apr 17, 2017 16:42
--- NOTE | 2017-04-17 16:42 | PN ---
Date/Time of Note Date/Time of Note DATE: 04/17/17 TIME: 16:42 Assessment/Plan VTE Prophylaxis VTE Prophylaxis Intervention: other Lines/Catheters IV Catheter Type (from Nrsg): Peripheral IV Urinary Cath still in place: No Assessment/Plan Chief Complaint/Hosp Course 1. Stage IV pancreatic cancer with obstructive jaundice and renal failure Hospice placement pending Pain control w THEORETICAL PHYSICIST per Dr Brown Declined ERCP DNR/DNI Problems: Subjective 24 Hr Interval Summary Constitutional: no complaints Exam/Review of Systems Vital Signs Vitals Vital Signs Date Time Temp Pulse Resp B/P Pulse Ox O2 Delivery O2 Flow Rate FiO2 04/17/17 14:00 97.6 94 18 122/69 100 04/16/17 14:22 Room Air Intake and Output 04/16/17 04/16/17 04/17/17 15:00 23:00 07:00 Intake Total 480 ml Output Total 500 ml Balance -20 ml Exam Constitutional: alert, oriented Respiratory: clear to auscultation Cardiovascular: regular rate and rhythm Gastrointestinal: soft, No distended Musculoskeletal: nl extremities to inspection Medications Medications Current Medications Enoxaparin Sodium (Lovenox) 30 mg DAILY SC Last administered on 04/17/17 08:45 ; Admin Dose 30 MG; Start 04/12/17 at 09:00 Hydromorphone HCl (Dilaudid THEORETICAL PHYSICIST) 0.3 MG/HR CONTINUOUS R... Q4PCA IV Last administered on 04/17/17 03:55; Admin Dose 6 MG; Start 04/12/17 at 09:00 Nystatin (Nystatin Oint) 1 applic BID TOP Last administered on 04/17/17 08:46 ; Admin Dose 1 APPLIC; Start 04/12/17 at 21:00 MICHAEL GRAMAJO Apr 17, 2017 16:42
--- NOTE | 2017-04-17 16:42 | PN ---
Date/Time of Note Date/Time of Note DATE: 04/17/17 TIME: 16:42 Assessment/Plan VTE Prophylaxis VTE Prophylaxis Intervention: other Lines/Catheters IV Catheter Type (from Nrsg): Peripheral IV Urinary Cath still in place: No Assessment/Plan Chief Complaint/Hosp Course 1. Stage IV pancreatic cancer with obstructive jaundice and renal failure Hospice placement pending Pain control w VOCATIONAL AIDE per Dr Brown Declined ERCP DNR/DNI Problems: Subjective 24 Hr Interval Summary Constitutional: no complaints Exam/Review of Systems Vital Signs Vitals Vital Signs Date Time Temp Pulse Resp B/P Pulse Ox O2 Delivery O2 Flow Rate FiO2 04/17/17 14:00 97.6 94 18 122/69 100 04/16/17 14:22 Room Air Intake and Output 04/16/17 04/16/17 04/17/17 15:00 23:00 07:00 Intake Total 480 ml Output Total 500 ml Balance -20 ml Exam Constitutional: alert, oriented Respiratory: clear to auscultation Cardiovascular: regular rate and rhythm Gastrointestinal: soft, No distended Musculoskeletal: nl extremities to inspection Medications Medications Current Medications Enoxaparin Sodium (Lovenox) 30 mg DAILY SC Last administered on 04/17/17 08:45 ; Admin Dose 30 MG; Start 04/12/17 at 09:00 Hydromorphone HCl (Dilaudid VOCATIONAL AIDE) 0.3 MG/HR CONTINUOUS R... Q4PCA IV Last administered on 04/17/17 03:55; Admin Dose 6 MG; Start 04/12/17 at 09:00 Nystatin (Nystatin Oint) 1 applic BID TOP Last administered on 04/17/17 08:46 ; Admin Dose 1 APPLIC; Start 04/12/17 at 21:00 MICHAEL GRAMAJO Apr 17, 2017 16:42
[2017-04-17 20:10] VITALS: BP 119/69; RESP 18
[2017-04-18 01:28] VITALS: BP 106/64; RESP 18
[2017-04-18 07:55] VITALS: BP 107/69; RESP 20
[2017-04-18] MEDS: NYSTATIN 15 GM OINT TOP SCH (08:15)
[2017-04-18] MEDS: ENOXAPARIN 30 MG/0.3 ML SYG SC SCH (08:19)
[2017-04-18] MEDS ORDERED: HYDROmorphONE 1 MG/ML SYG IV STA (15:57)
--- NOTE | 2017-04-18 16:08 | DS ---
Date/Time of Note Date/Time of Note DATE: 04/18/17 TIME: 16:05 Discharge Summary Admission/Discharge Info Admit Date/Time Apr 11, 2017 at 13:53 Discharge Date/Time April 18, 2017 Discharge Diagnosis 1. Stage IV pancreatic cancer with obstructive jaundice and renal failure DC to hospice facility Continue pain control Declined ERCP Patient Condition: Serious Hospital Course Patient is a 57 yo male presenting with previously diagnosed stage IV pancreatic cancer a few months ago at [facility] after presenting with jaundice. Was offered biliary stent but declined. No cancer directed care ever done, as patient decided given inability to cure advanced cancer there wasn't point in doing so. Patient presented with intractable pain in the right upper quadrant presented to the hospital for pain control, patient was seen by palliative care was started on a Dilaudid drip. Imaging and labs shows marked obstructive jaundice in setting of metastatic pancreatic cancer. Patient has been offered pallitative ERCP/stent but had refused. Patient was seen by a hospice agency and will be discharged to a facility with hospice. Home Meds No Active Prescriptions or Reported Meds Primary Care Provider Care Physician No Primary Time spent on discharge: > 30 minutes MICHAEL GRAMAJO Apr 18, 2017 16:08
[2017-04-18] MEDS: HYDROmorphONE 0.2 MG/ML PCA IV SCH (16:53)
== END 2017-04-18 20:43 | disposition hospice, inpatient (51) | DRG 435 ==
LOC: E/R 12:12 → MS1 13:53
PROVIDERS: ADMIT Internal Medicine; ATTEND Internal Medicine
DX: C25.2 Malignant neoplasm of tail of pancreas (principal); K83.1 Obstruction of bile duct; N17.9 Acute kidney failure, unspecified; C78.7 Secondary malignant neoplasm of liver and intrahepatic bile duct; Z72.0 Tobacco use; F32.9 Major depressive disorder, single episode, unspecified; N18.9 Chronic kidney disease, unspecified; Z66 Do not resuscitate; Z51.5 Encounter for palliative care
CPT/HCPCS: 36415; 71010; 74176; 76700; 80053; 81001; 83605; 83690; 84300; 84484; 85025; 85610; 85730; 87040; 87086; 93005; 96374; 96375; J1170; J1650; J2405; J2543; J7030; J7120